=== PATIENT | male | born 1940 | race Caucasian/White ===

== ENCOUNTER 2018-01-29 15:28 | Inpatient (IN) ==
[2018-01-29 17:18] LABS: Lactic Acid 1.4 MMOL/L (0.4-2.0)
[2018-01-29 17:19] LABS: Albumin 3.7 G/DL (3.4-5.0); Bilirubin,Total 0.8 MG/DL (0.2-1.0); Calcium 8.7 MG/DL (8.5-10.1); Osmolality,Calculated 281.4 MOS/KG (273-304); Potassium 3.9 MMOL/L (3.5-5.1); Total Protein 6.8 G/DL (6.4-8.3)
[2018-01-29 17:30] LABS: Basophils % 0.2 % (0.0-0.8); Eosinophils % 0.1 % (0.00-10.9); Hematocrit 32.2 VOL% (42.0-52.0); Hemoglobin 11.1 GM/DL (14.0-18.0); Immature Granulocytes % 7.3 %; Immature Granulocytes Absolute 0.72 #; Lymphocytes # 0.5 10*3/uL (1.4-4.0); Lymphocytes % 5.5 % (21.2-54.2); Mean Corpuscular HGB Conc 34.5 GM/DL (32-36); Mean Corpuscular Hemoglobin 32 PG (27-34); Mean Corpuscular Volume 93.6 FL (87-102); Mean Platelet Volume 9.7 FL (9.6-12.0); Monocytes % 10.5 % (1.7-12.7); Neutrophils # 7.6 10*3/uL (1.4-7.4); Neutrophils % 76.4 % (38.7-73.9); Platelet Count 149 T/CUMM (130-400); Red Blood Count 3.44 MC/CUMM (3.8-5.5); Red Cell Distribution Width 13.2 % (9.3-17.3); White Blood Count 9.9 T/CUMM (4-12)
[2018-01-29 17:45] LABS: Apearance,Urine Slightly Hazy (Clear); Bacteria,Urine Occasional /HPF (Few); Bilirubin,Urine Negative (Negative); Blood, Urine Small mg/dL (Negative); Glucose,Urine (UA) Negative (Negative); Ketones,Urine 5 mg/dL (Negative); Mucus,Urine Occasional /LPF (Occasional); Nitrite,Urine Negative (Negative); Protein,Urine 30 MG/DL; RBC,Urine 3 /HPF (0-4); Squamous Epithelial Cell,Urine Occasional /HPF (0-10); Urine Color Yellow (Yellow); Urine Specific Gravity 1.018 (1.001-1.035); WBC,Urine 63 /HPF (0-6)
[2018-01-29] MEDS ORDERED: SODIUM CHLORIDE 0.9% 1,000 ML IV STA (18:04)
[2018-01-29] MEDS ORDERED: cefTRIAXone 1,000 MG in SODIUM CHLORIDE 0.9% 100 ML IV STA (18:04)
[2018-01-29 18:28] LABS: Band Neutrophils 3 % (0-10); Lymphocytes 8 % (20-55); Segmented Neutrophils 83 % (50-85)
[2018-01-29 18:29] LABS: Platelet Estimate Normal; Total Cells Counted 100
[2018-01-29] MEDS ORDERED: ONDANSETRON 4 MG/2 ML VIAL IV PRN (18:33)
[2018-01-29] MEDS: SODIUM CHLORIDE 0.9% 1,000 ML IV SCH (22:11)
[2018-01-29] MEDS: FAMOTIDINE 20 MG TABLET PO SCH (22:12)
[2018-01-29] MEDS: PREGABALIN 75 MG CAPSULE PO SCH (22:12)
[2018-01-29] MEDS: traZODone 50 MG TABLET PO SCH (22:12)
[2018-01-29] MEDS: ENOXAPARIN 40 MG/0.4 ML SYRINGE SUBCUT SCH (22:13)
[2018-01-29] MEDS: FLUTICASONE 50 MCG NASAL SPRAY 16 GM BOTTLE BOTH NARES SCH (22:14)
[2018-01-29] MEDS: ACETAMINOPHEN 325 MG TABLET PO PRN (22:21)
[2018-01-29] MEDS: MEROPENEM 1,000 MG in SYRINGE 1 EACH IV SCH (22:22)
[2018-01-30 03:59] LABS: Basophils % 0.4 % (0.0-0.8); Eosinophils % 0.4 % (0.00-10.9); Hematocrit 28.5 VOL% (42.0-52.0); Hemoglobin 10.1 GM/DL (14.0-18.0); Immature Granulocytes % 6.5 %; Immature Granulocytes Absolute 0.54 #; Lymphocytes # 0.6 10*3/uL (1.4-4.0); Lymphocytes % 6.7 % (21.2-54.2); Mean Corpuscular HGB Conc 35.4 GM/DL (32-36); Mean Corpuscular Hemoglobin 32 PG (27-34); Mean Corpuscular Volume 91.1 FL (87-102); Mean Platelet Volume 9.9 FL (9.6-12.0); Monocytes # 0.9 10*3/uL (0.11-0.8); Monocytes % 10.5 % (1.7-12.7); Neutrophils # 6.3 10*3/uL (1.4-7.4); Neutrophils % 75.5 % (38.7-73.9); Platelet Count 145 T/CUMM (130-400); Red Blood Count 3.13 MC/CUMM (3.8-5.5); White Blood Count 8.4 T/CUMM (4-12)
[2018-01-30 04:23] LABS: Calcium 8.5 MG/DL (8.5-10.1); Osmolality,Calculated 282.3 MOS/KG (273-304); Potassium 3.4 MMOL/L (3.5-5.1)
[2018-01-30 06:58] LABS: Band Neutrophils 1 % (0-10); Lymphocytes 6 % (20-55); Platelet Estimate Normal; Segmented Neutrophils 89 % (50-85); Total Cells Counted 100
[2018-01-30] MEDS ORDERED: PANTOPRAZOLE 40 MG TABLET PO SCH (09:00)
[2018-01-30] MEDS: MEROPENEM 1,000 MG in SYRINGE 1 EACH IV SCH ×2 (09:29→20:23)
[2018-01-30] MEDS: MELOXICAM 7.5 MG TABLET PO SCH (09:29)
[2018-01-30] MEDS: PREGABALIN 75 MG CAPSULE PO SCH ×2 (09:29→20:21)
[2018-01-30] MEDS: MULTIVITAMIN (CENTRUM) TABLET PO SCH (09:29)
[2018-01-30] MEDS: FAMOTIDINE 20 MG TABLET PO SCH ×2 (09:29→20:21)
[2018-01-30] MEDS: ASPIRIN EC 81 MG TABLET PO SCH (09:29)
[2018-01-30] MEDS: CETIRIZINE 10 MG TABLET PO SCH (09:30)
[2018-01-30] MEDS: PRAVASTATIN 40 MG TABLET PO SCH (09:30)
[2018-01-30] MEDS: FLUTICASONE 50 MCG NASAL SPRAY 16 GM BOTTLE BOTH NARES SCH ×2 (10:49→20:22)
[2018-01-30] MEDS: SODIUM CHLORIDE 0.9% 1,000 ML IV SCH ×2 (10:49→23:16)
[2018-01-30] MEDS: ACETAMINOPHEN 325 MG TABLET PO PRN (20:21)
[2018-01-30] MEDS: traZODone 50 MG TABLET PO SCH (20:21)
[2018-01-30] MEDS: ENOXAPARIN 40 MG/0.4 ML SYRINGE SUBCUT SCH (20:22)
[2018-01-31 06:57] LABS: Calcium 8.6 MG/DL (8.5-10.1); Osmolality,Calculated 292.6 MOS/KG (273-304); Potassium 3.6 MMOL/L (3.5-5.1)
[2018-01-31 07:05] LABS: Basophils % 0.5 % (0.0-0.8); Eosinophils # 0.2 10*3/uL (0.0-0.87); Eosinophils % 3.8 % (0.00-10.9); Hematocrit 29.1 VOL% (42.0-52.0); Hemoglobin 9.8 GM/DL (14.0-18.0); Immature Granulocytes % 4.8 %; Immature Granulocytes Absolute 0.19 #; Lymphocytes # 0.4 10*3/uL (1.4-4.0); Mean Corpuscular HGB Conc 33.7 GM/DL (32-36); Mean Corpuscular Hemoglobin 32 PG (27-34); Mean Corpuscular Volume 93.6 FL (87-102); Mean Platelet Volume 9.9 FL (9.6-12.0); Monocytes # 0.5 10*3/uL (0.11-0.8); Monocytes % 11.3 % (1.7-12.7); Neutrophils # 2.8 10*3/uL (1.4-7.4); Neutrophils % 70.6 % (38.7-73.9); Platelet Count 146 T/CUMM (130-400); Red Blood Count 3.11 MC/CUMM (3.8-5.5); Red Cell Distribution Width 12.9 % (9.3-17.3)
[2018-01-31] MEDS: MEROPENEM 1,000 MG in SYRINGE 1 EACH IV SCH ×2 (08:37→20:46)
[2018-01-31] MEDS: ASPIRIN EC 81 MG TABLET PO SCH (08:38)
[2018-01-31] MEDS: FAMOTIDINE 20 MG TABLET PO SCH ×2 (08:38→20:44)
[2018-01-31] MEDS: MELOXICAM 7.5 MG TABLET PO SCH (08:38)
[2018-01-31] MEDS: PREGABALIN 75 MG CAPSULE PO SCH ×2 (08:38→20:46)
[2018-01-31] MEDS: PRAVASTATIN 40 MG TABLET PO SCH (08:38)
[2018-01-31] MEDS: CETIRIZINE 10 MG TABLET PO SCH (08:38)
[2018-01-31] MEDS: MULTIVITAMIN (CENTRUM) TABLET PO SCH (08:38)
[2018-01-31] MEDS: FLUTICASONE 50 MCG NASAL SPRAY 16 GM BOTTLE BOTH NARES SCH ×2 (08:39→21:25)
[2018-01-31] MEDS: SODIUM CHLORIDE 0.9% 1,000 ML IV SCH (12:10)
[2018-01-31] MEDS: VANCOMYCIN INJ 1,500 MG in SODIUM CHLORIDE 0.9% 500 ML IV SCH (14:58)
[2018-01-31] MEDS: ACETAMINOPHEN 325 MG TABLET PO PRN (20:44)
[2018-01-31] MEDS: ENOXAPARIN 40 MG/0.4 ML SYRINGE SUBCUT SCH (20:44)
[2018-01-31] MEDS: traZODone 50 MG TABLET PO SCH (20:44)
[2018-02-01] MEDS: VANCOMYCIN INJ 1,500 MG in SODIUM CHLORIDE 0.9% 500 ML IV SCH (02:17)
[2018-02-01] MEDS: SODIUM CHLORIDE 0.9% 1,000 ML IV SCH (05:57)
[2018-02-01 07:14] VITALS: BP 110/61
[2018-02-01] MEDS: MEROPENEM 1,000 MG in SYRINGE 1 EACH IV SCH (09:33)
[2018-02-01] MEDS: MELOXICAM 7.5 MG TABLET PO SCH (09:34)
[2018-02-01] MEDS: MULTIVITAMIN (CENTRUM) TABLET PO SCH (09:34)
[2018-02-01] MEDS: ASPIRIN EC 81 MG TABLET PO SCH (09:34)
[2018-02-01] MEDS: CETIRIZINE 10 MG TABLET PO SCH (09:34)
[2018-02-01] MEDS: PRAVASTATIN 40 MG TABLET PO SCH (09:34)
[2018-02-01] MEDS: FAMOTIDINE 20 MG TABLET PO SCH (09:34)
[2018-02-01] MEDS: PREGABALIN 75 MG CAPSULE PO SCH (09:34)
[2018-02-01] MEDS: FLUTICASONE 50 MCG NASAL SPRAY 16 GM BOTTLE BOTH NARES SCH (09:38)
== END 2018-02-01 10:35 | disposition home or self-care (01) | DRG 690 ==
LOC: N.ED 15:28 → N.EDINP 18:32 → N.5E 19:33
PROVIDERS: ADMIT Internal Medicine; ATTEND Internal Medicine

== ENCOUNTER 2021-11-29 19:30 | Inpatient (IN) ==
[2021-11-29 19:59] LABS: Basophils # 0.1 10*3/uL (0.0-0.2); Basophils % 0.4 % (0.0-0.8); Eosinophils # 0.2 10*3/uL (0.0-0.87); Eosinophils % 1.6 % (0.00-10.9); Hematocrit 39.3 VOL% (42.0-52.0); Hemoglobin 13.6 GM/DL (14.0-18.0); Immature Granulocytes % 0.6 %; Immature Granulocytes Absolute 0.07 #; Lymphocytes # 1.8 10*3/uL (1.4-4.0); Lymphocytes % 15.7 % (21.2-54.2); Mean Corpuscular HGB Conc 34.6 GM/DL (32-36); Mean Corpuscular Volume 88.3 FL (87-102); Mean Platelet Volume 9.2 FL (9.6-12.0); Monocytes % 7.3 % (1.7-12.7); Neutrophils % 74.4 % (38.7-73.9); Platelet Count 225 T/CUMM (130-400); Red Blood Count 4.45 MC/CUMM (3.8-5.5); White Blood Count 11.3 T/CUMM (4-12)
[2021-11-29 20:09] LABS: PT Patient Result 10.9 SECS (10.5-12.0)
[2021-11-29 20:23] LABS: Alanine Aminotransferase 20 U/L (16-61); Albumin 3.9 G/DL (3.4-5.0); Alkaline Phosphatase 86 U/L (45-117); Aspartate Amino Transferase 13 U/L (0-37); Bilirubin,Total < 0.39 MG/DL (0.20-1.00); Blood Urea Nitrogen 22 MG/DL (7-18); Calcium 8.5 MG/DL (8.5-10.1); Carbon Dioxide 27 MMOL/L (21-32); Estimated Glom Filtration Rate 29 ML/MIN; Glucose 209 MG/DL (74-106); Osmolality,Calculated 287.4 MOS/KG (273-304); Potassium 2.9 MMOL/L (3.5-5.1); Sodium 140 MMOL/L (136-145); Total Protein 6.9 G/DL (6.4-8.2)
[2021-11-29] MEDS ORDERED: SODIUM CHLORIDE 0.9% 2,000 ML IV STA (20:55)
[2021-11-29 20:59] LABS: Hyaline Casts,Urine 1 /LPF (0-3); Mucus,Urine Occasional /LPF (Occasional); RBC,Urine 3 /HPF (0-4)
[2021-11-29 21:00] LABS: Bilirubin,Urine Negative (Negative); Blood, Urine Negative (Negative); Glucose,Urine (UA) Negative (Negative); Ketones,Urine Trace mg/dL (Negative); Nitrite,Urine Negative (Negative); Protein,Urine Trace mg/dL (Negative); Urine Appearance Clear (Clear); Urine Color Yellow (Yellow); Urine Specific Gravity 1.025 (1.001-1.035); Urine Urobilinogen 0.2 eU/dL (<2.0); Urine pH 5.5 (4.5-8.0)
[2021-11-30] MEDS ORDERED: POTASSIUM CHLORIDE RIDER 20 MEQ/100 ML PREMIX IV STA (00:16)
[2021-11-30] MEDS ORDERED: GLUCAGON 1 MG VIAL IM PRN (00:18)
[2021-11-30] MEDS ORDERED: MAGNESIUM SULF RIDER 2 GM/50 ML PREMIX IV PRN (00:18)
[2021-11-30] MEDS ORDERED: SIMETHICONE CHEW 125 MG TABLET PO PRN (00:18)
[2021-11-30] MEDS ORDERED: MAGNESIUM SULF RIDER 4 GM/100 ML PREMIX IV PRN (00:18)
[2021-11-30] MEDS ORDERED: ONDANSETRON 4 MG/2 ML VIAL IV PRN (00:18)
[2021-11-30] MEDS ORDERED: POTASSIUM CHLORIDE 20 MEQ TABLET PO STA (00:19)
[2021-11-30] MEDS ORDERED: DEXTROSE 10% 250 ML BAG IV PRN (00:35)
[2021-11-30] MEDS ORDERED: ENOXAPARIN 40 MG/0.4 ML SYRINGE SUBCUT SCH (01:00)
[2021-11-30] MEDS: LACTATED RINGERS 1,000 ML IV SCH ×2 (02:27→10:33)
[2021-11-30 04:13] LABS: Calcium 7.6 MG/DL (8.5-10.1); Osmolality,Calculated 284.3 MOS/KG (273-304)
[2021-11-30] MEDS: POTASSIUM CHLORIDE 20 MEQ TABLET PO PRN ×4 (05:06→11:47)
[2021-11-30 06:42] LABS: Basophils # 0.1 10*3/uL (0.0-0.2); Eosinophils # 0.2 10*3/uL (0.0-0.87); Eosinophils % 3.3 % (0.00-10.9); Hematocrit 34.2 VOL% (42.0-52.0); Hemoglobin 11.6 GM/DL (14.0-18.0); Immature Granulocytes % 0.5 %; Immature Granulocytes Absolute 0.03 #; Lymphocytes # 1.9 10*3/uL (1.4-4.0); Lymphocytes % 31.6 % (21.2-54.2); Mean Corpuscular HGB Conc 33.9 GM/DL (32-36); Mean Corpuscular Volume 89.8 FL (87-102); Mean Platelet Volume 9.7 FL (9.6-12.0); Monocytes % 8.7 % (1.7-12.7); Neutrophils % 54.9 % (38.7-73.9); Platelet Count 192 T/CUMM (130-400); Red Blood Count 3.81 MC/CUMM (3.8-5.5); Red Cell Distribution Width 14.1 % (9.3-17.3)
[2021-11-30] MEDS: INSULIN REGULAR 100 UNIT/ML SUBCUT SCH ×4 (07:43→21:20)
[2021-11-30] MEDS: ENOXAPARIN 40 MG/0.4 ML SYRINGE SUBCUT SCH (09:10)
[2021-11-30] MEDS: PANTOPRAZOLE 40 MG TABLET PO SCH (09:10)
[2021-11-30] MEDS: DOCUSATE SODIUM 100 MG CAPSULE PO SCH ×2 (09:10→20:44)
[2021-11-30] MEDS ORDERED: FLUTICASONE 50 MCG NASAL SPRAY 16 GM BOTTLE BOTH NARES PRN (09:30)
[2021-11-30] MEDS: LEVOTHYROXINE 75 MCG TABLET PO SCH (10:33)
[2021-11-30] MEDS: CITALOPRAM 20 MG TABLET PO SCH (10:33)
[2021-11-30] MEDS: LOSARTAN 50 MG TABLET PO SCH (10:33)
[2021-11-30] MEDS: CYANOCOBALAMIN 500 MCG TABLET PO SCH (16:41)
[2021-11-30] MEDS: ASPIRIN EC 81 MG TABLET PO SCH (20:43)
[2021-11-30] MEDS: CETIRIZINE 10 MG TABLET PO SCH (20:43)
[2021-11-30] MEDS: PREGABALIN 75 MG CAPSULE PO SCH (20:44)
[2021-11-30] MEDS: SIMVASTATIN 20 MG TABLET PO SCH (20:44)
[2021-12-01] MEDS: LACTATED RINGERS 1,000 ML IV SCH ×2 (03:11→21:20)
[2021-12-01 05:46] LABS: Basophils % 0.6 % (0.0-0.8); Eosinophils # 0.2 10*3/uL (0.0-0.87); Eosinophils % 2.3 % (0.00-10.9); Hematocrit 29.9 VOL% (42.0-52.0); Hemoglobin 10.3 GM/DL (14.0-18.0); Immature Granulocytes % 0.5 %; Immature Granulocytes Absolute 0.03 #; Lymphocytes % 15.9 % (21.2-54.2); Mean Corpuscular HGB Conc 34.4 GM/DL (32-36); Mean Corpuscular Volume 89.5 FL (87-102); Mean Platelet Volume 9.3 FL (9.6-12.0); Neutrophils % 73.7 % (38.7-73.9); Platelet Count 177 T/CUMM (130-400); Red Blood Count 3.34 MC/CUMM (3.8-5.5); Red Cell Distribution Width 14.1 % (9.3-17.3); White Blood Count 6.5 T/CUMM (4-12)
[2021-12-01 05:53] LABS: Calcium 7.9 MG/DL (8.5-10.1); Potassium 3.3 MMOL/L (3.5-5.1)
[2021-12-01] MEDS: LEVOTHYROXINE 75 MCG TABLET PO SCH (07:38)
[2021-12-01] MEDS: DOCUSATE SODIUM 100 MG CAPSULE PO SCH ×2 (08:51→21:18)
[2021-12-01] MEDS: CITALOPRAM 20 MG TABLET PO SCH (08:51)
[2021-12-01] MEDS: MULTIVITAMIN (CENTRUM) TABLET PO SCH (08:51)
[2021-12-01] MEDS: PANTOPRAZOLE 40 MG TABLET PO SCH (08:51)
[2021-12-01] MEDS: ENOXAPARIN 40 MG/0.4 ML SYRINGE SUBCUT SCH (08:52)
[2021-12-01] MEDS: LOSARTAN 50 MG TABLET PO SCH (08:52)
[2021-12-01] MEDS: POLYCARBOPHIL 625 MG TABLET PO SCH ×2 (08:58→21:19)
[2021-12-01] MEDS: PREGABALIN 75 MG CAPSULE PO SCH ×2 (09:12→21:19)
[2021-12-01] MEDS: CYANOCOBALAMIN 500 MCG TABLET PO SCH (09:14)
[2021-12-01] MEDS: INSULIN REGULAR 100 UNIT/ML SUBCUT SCH ×4 (09:33→20:56)
[2021-12-01] MEDS: SIMVASTATIN 20 MG TABLET PO SCH (21:18)
[2021-12-01] MEDS: CETIRIZINE 10 MG TABLET PO SCH (21:19)
[2021-12-01] MEDS: ASPIRIN EC 81 MG TABLET PO SCH (21:19)
[2021-12-01] MEDS: MAGNESIUM OXIDE 400 MG TABLET PO SCH (21:21)
[2021-12-02 04:25] LABS: Basophils % 0.3 % (0.0-0.8); Eosinophils # 0.1 10*3/uL (0.0-0.87); Eosinophils % 1.1 % (0.00-10.9); Hematocrit 28.9 VOL% (42.0-52.0); Hemoglobin 10.1 GM/DL (14.0-18.0); Immature Granulocytes % 0.9 %; Immature Granulocytes Absolute 0.08 #; Lymphocytes # 1.3 10*3/uL (1.4-4.0); Lymphocytes % 15.2 % (21.2-54.2); Mean Corpuscular HGB Conc 34.9 GM/DL (32-36); Mean Corpuscular Volume 88.7 FL (87-102); Mean Platelet Volume 9.2 FL (9.6-12.0); Neutrophils % 72.5 % (38.7-73.9); Platelet Count 138 T/CUMM (130-400); Red Blood Count 3.26 MC/CUMM (3.8-5.5); Red Cell Distribution Width 13.8 % (9.3-17.3); White Blood Count 8.7 T/CUMM (4-12)
[2021-12-02 04:53] LABS: Calcium 7.8 MG/DL (8.5-10.1); Osmolality,Calculated 279.5 MOS/KG (273-304); Potassium 2.6 MMOL/L (3.5-5.1)
[2021-12-02 04:57] LABS: % Iron Saturation 6.5 % (18-50); Ferritin 157.2 ng/mL (26-388)
[2021-12-02 05:01] LABS: Folate 7.35 NG/ML (5.38-24.0); Vitamin B12 1388 PG/ML (211-911)
[2021-12-02 05:03] LABS: Free T4 (Free Thyroxine) 0.93 NG/DL (0.76-1.46); Thyroid Stimulating Hormone 1.44 uIU/ml (0.358-3.74)
[2021-12-02] MEDS: LEVOTHYROXINE 75 MCG TABLET PO SCH (05:34)
[2021-12-02] MEDS: LACTATED RINGERS 1,000 ML IV SCH ×4 (05:35→21:06)
[2021-12-02 07:10] LABS: Sedimentation Rate-Westergren 30 MM/HR (0-20)
[2021-12-02 08:39] LABS: Hemoglobin A1 (Alkaline) 97.3 % (96.5-98.5); Hemoglobin A2 (Alkaline) 2.7 % (1.5-3.5)
[2021-12-02] MEDS: POTASSIUM CHLORIDE 20 MEQ TABLET PO PRN ×3 (09:26→18:00)
[2021-12-02] MEDS: PREGABALIN 75 MG CAPSULE PO SCH ×2 (09:27→21:03)
[2021-12-02] MEDS: LOSARTAN 50 MG TABLET PO SCH (09:27)
[2021-12-02] MEDS: POLYCARBOPHIL 625 MG TABLET PO SCH ×2 (09:27→21:03)
[2021-12-02] MEDS: DOCUSATE SODIUM 100 MG CAPSULE PO SCH ×2 (09:27→21:03)
[2021-12-02] MEDS: CITALOPRAM 20 MG TABLET PO SCH (09:27)
[2021-12-02] MEDS: MULTIVITAMIN (CENTRUM) TABLET PO SCH (09:27)
[2021-12-02] MEDS: MAGNESIUM OXIDE 400 MG TABLET PO SCH ×2 (09:28→21:03)
[2021-12-02] MEDS: PANTOPRAZOLE 40 MG TABLET PO SCH (09:28)
[2021-12-02] MEDS: CYANOCOBALAMIN 500 MCG TABLET PO SCH (09:28)
[2021-12-02] MEDS: ENOXAPARIN 40 MG/0.4 ML SYRINGE SUBCUT SCH (09:32)
[2021-12-02] MEDS ORDERED: POTASSIUM CHLORIDE 20 MEQ TABLET PO ONE (11:00)
[2021-12-02] MEDS ORDERED: MAGNESIUM SULF RIDER 2 GM/50 ML PREMIX IV ONE (11:00)
[2021-12-02] MEDS: INSULIN REGULAR 100 UNIT/ML SUBCUT SCH ×4 (11:45→21:03)
[2021-12-02] MEDS: ACETAMINOPHEN 325 MG TABLET PO PRN (18:01)
[2021-12-02] MEDS: ASPIRIN EC 81 MG TABLET PO SCH (21:02)
[2021-12-02] MEDS: CETIRIZINE 10 MG TABLET PO SCH (21:02)
[2021-12-02] MEDS: SIMVASTATIN 20 MG TABLET PO SCH (21:04)
[2021-12-03] MEDS: LACTATED RINGERS 1,000 ML IV SCH ×2 (04:18→14:53)
[2021-12-03] MEDS: ACETAMINOPHEN 325 MG TABLET PO PRN (04:18)
[2021-12-03] MEDS: LEVOTHYROXINE 75 MCG TABLET PO SCH ×2 (04:18→09:49)
[2021-12-03 05:09] LABS: Basophils % 0.4 % (0.0-0.8); Eosinophils # 0.1 10*3/uL (0.0-0.87); Eosinophils % 0.7 % (0.00-10.9); Hematocrit 29.1 VOL% (42.0-52.0); Hemoglobin 10.1 GM/DL (14.0-18.0); Immature Granulocytes % 1.3 %; Immature Granulocytes Absolute 0.13 #; Lymphocytes # 1.1 10*3/uL (1.4-4.0); Lymphocytes % 10.2 % (21.2-54.2); Mean Corpuscular HGB Conc 34.7 GM/DL (32-36); Mean Platelet Volume 9.4 FL (9.6-12.0); Monocytes % 10.5 % (1.7-12.7); Neutrophils % 76.9 % (38.7-73.9); Platelet Count 119 T/CUMM (130-400); Red Blood Count 3.27 MC/CUMM (3.8-5.5); Red Cell Distribution Width 13.6 % (9.3-17.3); White Blood Count 10.3 T/CUMM (4-12)
[2021-12-03 05:36] LABS: Band Neutrophils 3 % (0-10); Calcium 7.6 MG/DL (8.5-10.1); Hypochromia Slight; Lymphocytes 10 % (20-55); Osmolality,Calculated 278.5 MOS/KG (273-304); Potassium 2.7 MMOL/L (3.5-5.1); Segmented Neutrophils 82 % (50-85); Total Cells Counted 100
[2021-12-03 05:37] LABS: Microcytosis Slight; Ovalocytes Slight; Platelet Estimate Adequate
[2021-12-03] MEDS: POTASSIUM CHLORIDE RIDER 10 MEQ/100 ML PREMIX IV PRN ×4 (07:20→10:59)
[2021-12-03] MEDS: MAGNESIUM OXIDE 400 MG TABLET PO SCH ×2 (09:45→20:58)
[2021-12-03] MEDS: CITALOPRAM 20 MG TABLET PO SCH (09:45)
[2021-12-03] MEDS: PANTOPRAZOLE 40 MG TABLET PO SCH (09:45)
[2021-12-03] MEDS: LOSARTAN 50 MG TABLET PO SCH (09:45)
[2021-12-03] MEDS: MULTIVITAMIN (CENTRUM) TABLET PO SCH (09:45)
[2021-12-03] MEDS: PREGABALIN 75 MG CAPSULE PO SCH ×2 (09:45→20:43)
[2021-12-03] MEDS: POLYCARBOPHIL 625 MG TABLET PO SCH ×2 (09:45→20:43)
[2021-12-03] MEDS: CYANOCOBALAMIN 500 MCG TABLET PO SCH (09:45)
[2021-12-03] MEDS: DOCUSATE SODIUM 100 MG CAPSULE PO SCH ×2 (09:45→20:58)
[2021-12-03] MEDS: INSULIN REGULAR 100 UNIT/ML SUBCUT SCH ×4 (09:49→20:45)
[2021-12-03] MEDS: SODIUM CHLOR 0.9% KCL 40 MEQ 40 MEQ/1,000 ML BAG IV SCH (11:30)
[2021-12-03 12:26] LABS: Calcium 8.1 MG/DL (8.5-10.1); Osmolality,Calculated 278.5 MOS/KG (273-304); Potassium 3.4 MMOL/L (3.5-5.1)
[2021-12-03] MEDS ORDERED: LIDOCAINE 2% 5 ML VIAL ONE (13:31)
[2021-12-03] MEDS ORDERED: propofoL 200 MG/20 ML VIAL IV ONE (13:31)
[2021-12-03] MEDS: CETIRIZINE 10 MG TABLET PO SCH (20:43)
[2021-12-03] MEDS: SIMVASTATIN 20 MG TABLET PO SCH (20:43)
[2021-12-03] MEDS: ASPIRIN EC 81 MG TABLET PO SCH (20:43)
[2021-12-03] MEDS: FERROUS SULFATE 325 MG TABLET PO SCH (20:58)
[2021-12-04 00:06] LABS: CDT Result Negative (Negative); CDT Specimen Source STOOL
[2021-12-04] MEDS: SODIUM CHLOR 0.9% KCL 40 MEQ 40 MEQ/1,000 ML BAG IV SCH ×2 (03:06→16:05)
[2021-12-04] MEDS: LEVOTHYROXINE 75 MCG TABLET PO SCH (05:32)
[2021-12-04 06:06] LABS: Basophils % 0.3 % (0.0-0.8); Eosinophils # 0.1 10*3/uL (0.0-0.87); Eosinophils % 1.1 % (0.00-10.9); Hematocrit 28.6 VOL% (42.0-52.0); Hemoglobin 9.6 GM/DL (14.0-18.0); Immature Granulocytes Absolute 0.09 #; Lymphocytes # 1.1 10*3/uL (1.4-4.0); Mean Corpuscular HGB Conc 33.6 GM/DL (32-36); Mean Corpuscular Volume 90.2 FL (87-102); Mean Platelet Volume 10.2 FL (9.6-12.0); Monocytes % 10.5 % (1.7-12.7); Neutrophils % 74.1 % (38.7-73.9); Platelet Count 123 T/CUMM (130-400); Red Blood Count 3.17 MC/CUMM (3.8-5.5); Red Cell Distribution Width 13.5 % (9.3-17.3); White Blood Count 8.7 T/CUMM (4-12)
[2021-12-04 06:28] LABS: Eosinophils 1 % (0-10); Lymphocytes 12 % (20-55); Segmented Neutrophils 85 % (50-85); Total Cells Counted 100
[2021-12-04 06:32] LABS: Platelet Estimate Normal
[2021-12-04 06:34] LABS: Hypochromia Slight
[2021-12-04 06:35] LABS: Microcytosis Slight
[2021-12-04 06:45] LABS: Calcium 7.8 MG/DL (8.5-10.1); Osmolality,Calculated 276.7 MOS/KG (273-304); Potassium 3.1 MMOL/L (3.5-5.1)
[2021-12-04] MEDS ORDERED: ERGOCALCIFEROL 50,000 UNIT CAPSULE PO SCH (09:00)
[2021-12-04] MEDS: POLYCARBOPHIL 625 MG TABLET PO SCH (09:36)
[2021-12-04] MEDS: PREGABALIN 75 MG CAPSULE PO SCH ×2 (09:36→21:55)
[2021-12-04] MEDS: INSULIN REGULAR 100 UNIT/ML SUBCUT SCH ×4 (09:36→21:54)
[2021-12-04] MEDS: DOCUSATE SODIUM 100 MG CAPSULE PO SCH (09:36)
[2021-12-04] MEDS: FERROUS SULFATE 325 MG TABLET PO SCH ×2 (09:36→21:55)
[2021-12-04] MEDS: CYANOCOBALAMIN 500 MCG TABLET PO SCH (09:36)
[2021-12-04] MEDS: MAGNESIUM OXIDE 400 MG TABLET PO SCH ×2 (09:37→21:55)
[2021-12-04] MEDS: LOSARTAN 50 MG TABLET PO SCH (09:37)
[2021-12-04] MEDS: CITALOPRAM 20 MG TABLET PO SCH (09:37)
[2021-12-04] MEDS: PANTOPRAZOLE 40 MG TABLET PO SCH (09:37)
[2021-12-04] MEDS: MULTIVITAMIN (CENTRUM) TABLET PO SCH (09:37)
[2021-12-04 20:02] LABS: RBC,Urine 8 /HPF (0-4)
[2021-12-04 20:03] LABS: Bilirubin,Urine Negative (Negative); Blood, Urine Small mg/dL (Negative); Glucose,Urine (UA) 500 mg/dL (Negative); Ketones,Urine Negative (Negative); Nitrite,Urine Positive (Negative); Protein,Urine 1+ mg/dL (Negative); Urine Appearance Cloudy (Clear); Urine Color Yellow (Yellow); Urine Specific Gravity 1.015 (1.001-1.035); Urine Urobilinogen 0.2 eU/dL (<2.0)
[2021-12-04] MEDS: SIMVASTATIN 20 MG TABLET PO SCH (21:55)
[2021-12-04] MEDS: CETIRIZINE 10 MG TABLET PO SCH (21:55)
[2021-12-04] MEDS: ASPIRIN EC 81 MG TABLET PO SCH (21:55)
[2021-12-04] MEDS: CHOLESTYRAMINE 4 GM PACK PO SCH (22:16)
[2021-12-05] MEDS: LEVOTHYROXINE 75 MCG TABLET PO SCH (06:00)
[2021-12-05 06:13] LABS: Basophils % 0.4 % (0.0-0.8); Eosinophils # 0.2 10*3/uL (0.0-0.87); Eosinophils % 2.9 % (0.00-10.9); Hematocrit 33.8 VOL% (42.0-52.0); Hemoglobin 11.6 GM/DL (14.0-18.0); Immature Granulocytes % 0.5 %; Immature Granulocytes Absolute 0.03 #; Lymphocytes # 0.7 10*3/uL (1.4-4.0); Lymphocytes % 13.5 % (21.2-54.2); Mean Corpuscular HGB Conc 34.3 GM/DL (32-36); Mean Corpuscular Volume 90.6 FL (87-102); Mean Platelet Volume 10.3 FL (9.6-12.0); Monocytes % 11.5 % (1.7-12.7); Neutrophils % 71.2 % (38.7-73.9); Platelet Count 120 T/CUMM (130-400); Red Blood Count 3.73 MC/CUMM (3.8-5.5); Red Cell Distribution Width 13.6 % (9.3-17.3); White Blood Count 5.5 T/CUMM (4-12)
[2021-12-05 06:27] LABS: Calcium 7.8 MG/DL (8.5-10.1); Osmolality,Calculated 284.4 MOS/KG (273-304); Potassium 3.3 MMOL/L (3.5-5.1)
[2021-12-05] MEDS: FERROUS SULFATE 325 MG TABLET PO SCH ×2 (09:16→22:16)
[2021-12-05] MEDS: CHOLESTYRAMINE 4 GM PACK PO SCH ×2 (09:16→22:16)
[2021-12-05] MEDS: LOSARTAN 50 MG TABLET PO SCH (09:16)
[2021-12-05] MEDS: CYANOCOBALAMIN 500 MCG TABLET PO SCH (09:17)
[2021-12-05] MEDS: MAGNESIUM OXIDE 400 MG TABLET PO SCH ×2 (09:17→22:16)
[2021-12-05] MEDS: INSULIN REGULAR 100 UNIT/ML SUBCUT SCH ×4 (09:17→21:09)
[2021-12-05] MEDS: MULTIVITAMIN (CENTRUM) TABLET PO SCH (09:17)
[2021-12-05] MEDS: CITALOPRAM 20 MG TABLET PO SCH (09:17)
[2021-12-05] MEDS: PREGABALIN 75 MG CAPSULE PO SCH ×2 (09:17→22:16)
[2021-12-05] MEDS: PANTOPRAZOLE 40 MG TABLET PO SCH (09:17)
[2021-12-05] MEDS: SODIUM CHLOR 0.9% KCL 40 MEQ 40 MEQ/1,000 ML BAG IV SCH ×2 (09:26→23:00)
[2021-12-05] MEDS: LEVOFLOXACIN INJ 500 MG/100 ML PREMIX IV SCH (11:13)
[2021-12-05] MEDS ORDERED: TUBERCULIN SKIN TEST 0.1 ML SYRINGE INTRADERM ONE (15:00)
[2021-12-05] MEDS: ASPIRIN EC 81 MG TABLET PO SCH (22:16)
[2021-12-05] MEDS: SIMVASTATIN 20 MG TABLET PO SCH (22:16)
[2021-12-05] MEDS: CETIRIZINE 10 MG TABLET PO SCH (22:16)
[2021-12-05 23:14] LABS: CDT Result Negative (Negative); CDT Specimen Source STOOL
[2021-12-06] MEDS: LEVOTHYROXINE 75 MCG TABLET PO SCH (06:32)
[2021-12-06 06:54] LABS: Basophils % 0.4 % (0.0-0.8); Eosinophils # 0.2 10*3/uL (0.0-0.87); Eosinophils % 4.1 % (0.00-10.9); Hematocrit 26.2 VOL% (42.0-52.0); Hemoglobin 8.7 GM/DL (14.0-18.0); Immature Granulocytes % 0.8 %; Immature Granulocytes Absolute 0.04 #; Lymphocytes # 0.9 10*3/uL (1.4-4.0); Lymphocytes % 16.7 % (21.2-54.2); Mean Corpuscular HGB Conc 33.2 GM/DL (32-36); Mean Corpuscular Volume 91.6 FL (87-102); Mean Platelet Volume 10.2 FL (9.6-12.0); Monocytes % 11.6 % (1.7-12.7); Neutrophils % 66.4 % (38.7-73.9); Platelet Count 149 T/CUMM (130-400); Red Blood Count 2.86 MC/CUMM (3.8-5.5); Red Cell Distribution Width 13.5 % (9.3-17.3); White Blood Count 5.1 T/CUMM (4-12)
[2021-12-06 07:20] LABS: Calcium 8.1 MG/DL (8.5-10.1); Osmolality,Calculated 282.3 MOS/KG (273-304); Potassium 3.1 MMOL/L (3.5-5.1)
[2021-12-06] MEDS: CHOLESTYRAMINE 4 GM PACK PO SCH ×2 (09:31→21:50)
[2021-12-06] MEDS: INSULIN REGULAR 100 UNIT/ML SUBCUT SCH ×4 (09:32→21:44)
[2021-12-06] MEDS: CYANOCOBALAMIN 500 MCG TABLET PO SCH (09:32)
[2021-12-06] MEDS: PREGABALIN 75 MG CAPSULE PO SCH ×2 (09:32→21:49)
[2021-12-06] MEDS: PANTOPRAZOLE 40 MG TABLET PO SCH (09:32)
[2021-12-06] MEDS: LOSARTAN 50 MG TABLET PO SCH (09:32)
[2021-12-06] MEDS: FERROUS SULFATE 325 MG TABLET PO SCH ×2 (09:33→21:49)
[2021-12-06] MEDS: MAGNESIUM OXIDE 400 MG TABLET PO SCH ×2 (09:33→21:50)
[2021-12-06] MEDS: MULTIVITAMIN (CENTRUM) TABLET PO SCH (09:33)
[2021-12-06] MEDS: CITALOPRAM 20 MG TABLET PO SCH (09:34)
[2021-12-06] MEDS: LEVOFLOXACIN INJ 500 MG/100 ML PREMIX IV SCH (10:52)
[2021-12-06] MEDS: SODIUM CHLOR 0.9% KCL 40 MEQ 40 MEQ/1,000 ML BAG IV SCH (12:47)
[2021-12-06] MEDS: POTASSIUM CHLORIDE 20 MEQ TABLET PO PRN ×2 (12:47→14:53)
[2021-12-06] MEDS ORDERED: POTASSIUM CHLORIDE 20 MEQ TABLET PO ONE (16:54)
[2021-12-06] MEDS ORDERED: MAGNESIUM SULF RIDER 2 GM/50 ML PREMIX IV ONE (16:54)
[2021-12-06] MEDS: SIMVASTATIN 20 MG TABLET PO SCH (21:49)
[2021-12-06] MEDS: ASPIRIN EC 81 MG TABLET PO SCH (21:49)
[2021-12-06] MEDS: CETIRIZINE 10 MG TABLET PO SCH (21:49)
[2021-12-07] MEDS: LEVOTHYROXINE 75 MCG TABLET PO SCH (05:31)
[2021-12-07] MEDS: SODIUM CHLOR 0.9% KCL 40 MEQ 40 MEQ/1,000 ML BAG IV SCH (06:09)
[2021-12-07 07:19] LABS: Basophils % 0.9 % (0.0-0.8); Eosinophils # 0.2 10*3/uL (0.0-0.87); Eosinophils % 4.3 % (0.00-10.9); Hematocrit 28.3 VOL% (42.0-52.0); Hemoglobin 9.4 GM/DL (14.0-18.0); Immature Granulocytes % 0.6 %; Immature Granulocytes Absolute 0.03 #; Lymphocytes # 1.1 10*3/uL (1.4-4.0); Lymphocytes % 24.1 % (21.2-54.2); Mean Corpuscular HGB Conc 33.2 GM/DL (32-36); Mean Corpuscular Volume 92.5 FL (87-102); Mean Platelet Volume 10.2 FL (9.6-12.0); Monocytes % 9.9 % (1.7-12.7); Neutrophils % 60.2 % (38.7-73.9); Platelet Count 148 T/CUMM (130-400); Red Blood Count 3.06 MC/CUMM (3.8-5.5); Red Cell Distribution Width 13.6 % (9.3-17.3); White Blood Count 4.6 T/CUMM (4-12)
[2021-12-07 07:40] LABS: Calcium 8.5 MG/DL (8.5-10.1); Osmolality,Calculated 284.1 MOS/KG (273-304); Potassium 3.8 MMOL/L (3.5-5.1)
[2021-12-07] MEDS: LOSARTAN 50 MG TABLET PO SCH (08:53)
[2021-12-07] MEDS: POTASSIUM CHLORIDE 20 MEQ TABLET PO PRN (08:53)
[2021-12-07] MEDS: CYANOCOBALAMIN 500 MCG TABLET PO SCH (08:54)
[2021-12-07] MEDS: PREGABALIN 75 MG CAPSULE PO SCH ×2 (08:54→20:43)
[2021-12-07] MEDS: MAGNESIUM OXIDE 400 MG TABLET PO SCH ×2 (08:54→20:43)
[2021-12-07] MEDS: CITALOPRAM 20 MG TABLET PO SCH (08:54)
[2021-12-07] MEDS: MULTIVITAMIN (CENTRUM) TABLET PO SCH (08:54)
[2021-12-07] MEDS: PANTOPRAZOLE 40 MG TABLET PO SCH (08:54)
[2021-12-07] MEDS: INSULIN REGULAR 100 UNIT/ML SUBCUT SCH ×4 (08:55→20:43)
[2021-12-07] MEDS: FERROUS SULFATE 325 MG TABLET PO SCH ×2 (10:31→20:43)
[2021-12-07] MEDS: LEVOFLOXACIN INJ 500 MG/100 ML PREMIX IV SCH (10:32)
[2021-12-07] MEDS: CHOLESTYRAMINE 4 GM PACK PO SCH ×2 (10:32→21:38)
[2021-12-07 15:36] LABS: Basophils % 0.9 % (0.0-0.8); Eosinophils # 0.2 10*3/uL (0.0-0.87); Eosinophils % 3.9 % (0.00-10.9); Hemoglobin 9.3 GM/DL (14.0-18.0); Immature Granulocytes % 0.9 %; Immature Granulocytes Absolute 0.04 #; Lymphocytes # 1.2 10*3/uL (1.4-4.0); Lymphocytes % 26.2 % (21.2-54.2); Mean Corpuscular HGB Conc 33.2 GM/DL (32-36); Mean Corpuscular Volume 92.4 FL (87-102); Mean Platelet Volume 9.9 FL (9.6-12.0); Monocytes % 9.3 % (1.7-12.7); Neutrophils % 58.8 % (38.7-73.9); Platelet Count 155 T/CUMM (130-400); Red Blood Count 3.03 MC/CUMM (3.8-5.5); Red Cell Distribution Width 13.4 % (9.3-17.3); White Blood Count 4.4 T/CUMM (4-12)
[2021-12-07] MEDS: CETIRIZINE 10 MG TABLET PO SCH (20:43)
[2021-12-07] MEDS: ASPIRIN EC 81 MG TABLET PO SCH (20:43)
[2021-12-07] MEDS: SIMVASTATIN 20 MG TABLET PO SCH (20:43)
[2021-12-08] MEDS: SODIUM CHLOR 0.9% KCL 40 MEQ 40 MEQ/1,000 ML BAG IV SCH ×3 (00:53→14:50)
[2021-12-08 06:03] LABS: Basophils % 0.7 % (0.0-0.8); Eosinophils # 0.2 10*3/uL (0.0-0.87); Eosinophils % 3.3 % (0.00-10.9); Hematocrit 27.7 VOL% (42.0-52.0); Hemoglobin 9.3 GM/DL (14.0-18.0); Immature Granulocytes % 1.1 %; Immature Granulocytes Absolute 0.06 #; Lymphocytes # 1.1 10*3/uL (1.4-4.0); Mean Corpuscular HGB Conc 33.6 GM/DL (32-36); Mean Corpuscular Volume 90.8 FL (87-102); Mean Platelet Volume 9.7 FL (9.6-12.0); Monocytes % 7.9 % (1.7-12.7); Platelet Count 176 T/CUMM (130-400); Red Blood Count 3.05 MC/CUMM (3.8-5.5); Red Cell Distribution Width 13.4 % (9.3-17.3); White Blood Count 5.4 T/CUMM (4-12)
[2021-12-08] MEDS: LEVOTHYROXINE 75 MCG TABLET PO SCH (06:13)
[2021-12-08 06:23] LABS: Calcium 8.2 MG/DL (8.5-10.1); Osmolality,Calculated 283.1 MOS/KG (273-304); Potassium 4.3 MMOL/L (3.5-5.1)
[2021-12-08] MEDS: INSULIN REGULAR 100 UNIT/ML SUBCUT SCH ×4 (08:01→21:16)
[2021-12-08] MEDS: FERROUS SULFATE 325 MG TABLET PO SCH ×2 (09:45→21:17)
[2021-12-08] MEDS: CYANOCOBALAMIN 500 MCG TABLET PO SCH (09:45)
[2021-12-08] MEDS: PREGABALIN 75 MG CAPSULE PO SCH ×2 (09:45→21:17)
[2021-12-08] MEDS: LOSARTAN 50 MG TABLET PO SCH (09:45)
[2021-12-08] MEDS: PANTOPRAZOLE 40 MG TABLET PO SCH (09:45)
[2021-12-08] MEDS: MAGNESIUM OXIDE 400 MG TABLET PO SCH ×2 (09:45→21:16)
[2021-12-08] MEDS: CITALOPRAM 20 MG TABLET PO SCH (09:45)
[2021-12-08] MEDS: MULTIVITAMIN (CENTRUM) TABLET PO SCH (09:45)
[2021-12-08] MEDS: CHOLESTYRAMINE 4 GM PACK PO SCH ×3 (09:46→22:37)
[2021-12-08] MEDS: LEVOFLOXACIN INJ 500 MG/100 ML PREMIX IV SCH (10:00)
[2021-12-08] MEDS ORDERED: BISACODYL 5 MG TABLET PO ONE (13:30)
[2021-12-08] MEDS ORDERED: POLYETHYLENE GLYCOL POWDER 255 GM BOTTLE PO ONE (18:00)
[2021-12-08] MEDS: ASPIRIN EC 81 MG TABLET PO SCH (21:16)
[2021-12-08] MEDS: SIMVASTATIN 20 MG TABLET PO SCH (21:17)
[2021-12-08] MEDS: CETIRIZINE 10 MG TABLET PO SCH (21:19)
[2021-12-09 04:33] LABS: Basophils # 0.1 10*3/uL (0.0-0.2); Eosinophils # 0.2 10*3/uL (0.0-0.87); Eosinophils % 3.1 % (0.00-10.9); Hematocrit 29.4 VOL% (42.0-52.0); Hemoglobin 9.9 GM/DL (14.0-18.0); Immature Granulocytes % 1.8 %; Immature Granulocytes Absolute 0.09 #; Lymphocytes # 1.4 10*3/uL (1.4-4.0); Lymphocytes % 27.3 % (21.2-54.2); Mean Corpuscular HGB Conc 33.7 GM/DL (32-36); Mean Corpuscular Volume 90.2 FL (87-102); Mean Platelet Volume 9.6 FL (9.6-12.0); Monocytes % 6.4 % (1.7-12.7); Neutrophils % 60.4 % (38.7-73.9); Platelet Count 195 T/CUMM (130-400); Red Blood Count 3.26 MC/CUMM (3.8-5.5); Red Cell Distribution Width 13.2 % (9.3-17.3); White Blood Count 5.1 T/CUMM (4-12)
[2021-12-09 04:50] LABS: Calcium 8.8 MG/DL (8.5-10.1); Osmolality,Calculated 282.3 MOS/KG (273-304)
[2021-12-09] MEDS: SODIUM CHLOR 0.9% KCL 40 MEQ 40 MEQ/1,000 ML BAG IV SCH (05:05)
[2021-12-09] MEDS: LEVOTHYROXINE 75 MCG TABLET PO SCH (05:50)
[2021-12-09] MEDS: LEVOFLOXACIN INJ 500 MG/100 ML PREMIX IV SCH (10:03)
[2021-12-09] MEDS: CYANOCOBALAMIN 500 MCG TABLET PO SCH (10:03)
[2021-12-09] MEDS: MAGNESIUM OXIDE 400 MG TABLET PO SCH (10:04)
[2021-12-09] MEDS: PANTOPRAZOLE 40 MG TABLET PO SCH (10:04)
[2021-12-09] MEDS: PREGABALIN 75 MG CAPSULE PO SCH (10:04)
[2021-12-09] MEDS: FERROUS SULFATE 325 MG TABLET PO SCH (10:04)
[2021-12-09] MEDS: INSULIN REGULAR 100 UNIT/ML SUBCUT SCH ×2 (10:05→15:04)
[2021-12-09] MEDS: MULTIVITAMIN (CENTRUM) TABLET PO SCH (10:05)
[2021-12-09] MEDS: LOSARTAN 50 MG TABLET PO SCH (10:05)
[2021-12-09] MEDS: CITALOPRAM 20 MG TABLET PO SCH (10:05)
[2021-12-09] MEDS ORDERED: LIDOCAINE 2% 5 ML VIAL ONE (12:12)
[2021-12-09] MEDS ORDERED: propofoL 200 MG/20 ML VIAL IV ONE (12:12)
[2021-12-09] MEDS ORDERED: ETOMIDATE 20 MG/10 ML VIAL IV ONE (12:12)
[2021-12-09] MEDS ORDERED: LACTATED RINGERS 1,000 ML IV SCH (13:00)
[2021-12-09] MEDS: CHOLESTYRAMINE 4 GM PACK PO SCH (15:04)
[2021-12-09 16:27] VITALS: BP 145/59
[2021-12-10] MEDS ORDERED: LEVOFLOXACIN 500 MG TABLET PO SCH (09:00)
== END 2021-12-09 16:32 | disposition home health service (06) | DRG 682 ==
LOC: EDBD → EDUNIT# → N.ED 19:30 → N.EDINP 19:30 → SUATTDRO 11-30 00:18 → N.5E 11-30 01:25 → SUATTDRO 12-01 10:43
PROVIDERS: ADMIT Internal Medicine; ATTEND Internal Medicine

== ENCOUNTER 2022-05-08 07:53 | Inpatient (IN) ==
[~2022-05-08 07:53] MED LIST: ASPIRIN 325 MG TABLET PO ONE; DIAZEPAM 5 MG TABLET PO ONE; MAGNESIUM SULF RIDER 2 GM/50 ML PREMIX IV PRN; POTASSIUM CHLORIDE RIDER 10 MEQ/100 ML PREMIX IV PRN; diphenhydrAMINE CAP 50 MG CAPSULE PO ONE
[2022-05-08 08:27] LABS: Basophils # 0.1 10*3/uL (0.0-0.2); Basophils % 0.8 % (0.0-0.8); Eosinophils # 1.6 10*3/uL (0.0-0.87); Eosinophils % 18.3 % (0.00-10.9); Hematocrit 37.7 VOL% (42.0-52.0); Immature Granulocytes % 0.5 %; Immature Granulocytes Absolute 0.04 #; Lymphocytes # 2.3 10*3/uL (1.4-4.0); Lymphocytes % 26.2 % (21.2-54.2); Mean Corpuscular HGB Conc 34.5 GM/DL (32-36); Mean Corpuscular Volume 91.1 FL (87-102); Mean Platelet Volume 8.9 FL (9.6-12.0); Monocytes # 0.6 10*3/uL (0.11-0.8); Monocytes % 6.8 % (1.7-12.7); Neutrophils % 47.4 % (38.7-73.9); Platelet Count 194 T/CUMM (130-400); Red Blood Count 4.14 MC/CUMM (3.8-5.5); Red Cell Distribution Width 13.9 % (9.3-17.3); White Blood Count 8.6 T/CUMM (4-12)
[2022-05-08 08:37] LABS: Eosinophils 15 % (0-10); Lymphocytes 32 % (20-55); Platelet Estimate Adequate; Total Cells Counted 100
[2022-05-08 08:43] LABS: INR 0.9; PT Patient Result 10.4 SECS (10.1-12.1)
[2022-05-08 08:47] LABS: Albumin 3.6 G/DL (3.4-5.0); Bilirubin,Total 0.4 MG/DL (0.20-1.00); Calcium 9.7 MG/DL (8.5-10.1); Osmolality,Calculated 279.4 MOS/KG (273-304); Potassium 3.8 MMOL/L (3.5-5.1); Total Protein 7.1 G/DL (6.4-8.2)
[2022-05-08] MEDS ORDERED: DIAZEPAM 5 MG TABLET ONE (10:01)
[2022-05-08] MEDS ORDERED: ASPIRIN 325 MG TABLET ONE (10:01)
[2022-05-08] MEDS ORDERED: diphenhydrAMINE CAP 50 MG CAPSULE ONE (10:01)
[2022-05-08] MEDS: SODIUM CHLORIDE 0.9% 1,000 ML IV SCH (10:07)
[2022-05-08] MEDS ORDERED: VERAPAMIL 5 MG/2 ML VIAL ONE (10:43)
[2022-05-08] MEDS ORDERED: HEPARIN/NACL 0.9% 2 UNITS/ML 2,000 UNIT/1,000 ML BAG IV ONE (10:43)
[2022-05-08] MEDS ORDERED: NITROGLYCERIN DRIP 50 MG/250 ML BOTTLE IV ONE (10:43)
[2022-05-08] MEDS ORDERED: ENOXAPARIN 30 MG/0.3 ML SYRINGE ONE (11:58)
[2022-05-08] MEDS ORDERED: ONDANSETRON 4 MG TABLET PO PRN (12:51)
[2022-05-08] MEDS ORDERED: FLUTICASONE 50 MCG NASAL SPRAY 16 GM BOTTLE BOTH NARES PRN (12:51)
[2022-05-08] MEDS ORDERED: ACETAMINOPHEN 325 MG TABLET PO PRN (12:52)
[2022-05-08] MEDS ORDERED: MORPHINE 2 MG/1 ML SYRINGE IV PRN (12:52)
[2022-05-08] MEDS ORDERED: DOCUSATE SODIUM 100 MG CAPSULE PO PRN (12:52)
[2022-05-08] MEDS ORDERED: guaiFENesin/DM ER 600-30 MG TABLET PO PRN (12:52)
[2022-05-08] MEDS ORDERED: BISACODYL 5 MG TABLET PO PRN (12:52)
[2022-05-08] MEDS ORDERED: ZALEPLON 5 MG CAPSULE PO PRN (12:52)
[2022-05-08] MEDS ORDERED: POTASSIUM CHLORIDE 20 MEQ TABLET PO PRN (12:52)
[2022-05-08] MEDS ORDERED: hydrALAZINE 20 MG/1 ML VIAL IV PRN (12:52)
[2022-05-08] MEDS ORDERED: PROMETHAZINE 25 MG TABLET PO PRN (12:52)
[2022-05-08] MEDS ORDERED: ONDANSETRON 4 MG/2 ML VIAL IV PRN (12:52)
[2022-05-08] MEDS ORDERED: MAGNESIUM SULF RIDER 4 GM/100 ML PREMIX IV PRN (12:52)
[2022-05-08] MEDS ORDERED: ALUMINUM/MAGNES/SIMETH MAX STR 30 ML UDCUP PO PRN (12:52)
[2022-05-08] MEDS ORDERED: MAGNESIUM SULF RIDER 2 GM/50 ML PREMIX IV PRN (12:52)
[2022-05-08] MEDS ORDERED: diphenhydrAMINE CAP 25 MG CAPSULE PO PRN (12:52)
[2022-05-08] MEDS: NITROGLYCERIN 2% OINT 1 INCH/GM PACK TOP SCH ×2 (13:53→21:13)
[2022-05-08] MEDS: GABAPENTIN 100 MG CAPSULE PO SCH ×2 (16:03→21:13)
[2022-05-08] MEDS: CHOLESTYRAMINE 4 GM PACK PO SCH (17:21)
[2022-05-08] MEDS ORDERED: SIMVASTATIN 20 MG TABLET PO SCH (21:00)
[2022-05-08] MEDS: FERROUS SULFATE 325 MG TABLET PO SCH (21:13)
[2022-05-08] MEDS: MEMANTINE 5 MG TABLET PO SCH (21:13)
[2022-05-08] MEDS: MAGNESIUM OXIDE 400 MG TABLET PO SCH (21:13)
[2022-05-09] MEDS: NITROGLYCERIN 2% OINT 1 INCH/GM PACK TOP SCH ×4 (02:39→21:10)
[2022-05-09 05:09] LABS: Basophils # 0.1 10*3/uL (0.0-0.2); Basophils % 0.8 % (0.0-0.8); Eosinophils # 0.8 10*3/uL (0.0-0.87); Eosinophils % 10.8 % (0.00-10.9); Hematocrit 33.2 VOL% (42.0-52.0); Hemoglobin 11.2 GM/DL (14.0-18.0); Immature Granulocytes % 0.4 %; Immature Granulocytes Absolute 0.03 #; Lymphocytes # 1.7 10*3/uL (1.4-4.0); Lymphocytes % 24.1 % (21.2-54.2); Mean Corpuscular HGB Conc 33.7 GM/DL (32-36); Mean Corpuscular Volume 92.2 FL (87-102); Mean Platelet Volume 9.3 FL (9.6-12.0); Monocytes # 0.4 10*3/uL (0.11-0.8); Monocytes % 5.9 % (1.7-12.7); Platelet Count 172 T/CUMM (130-400); Red Cell Distribution Width 13.9 % (9.3-17.3); White Blood Count 7.1 T/CUMM (4-12)
[2022-05-09 05:38] LABS: Albumin 2.9 G/DL (3.4-5.0); Bilirubin,Total 0.5 MG/DL (0.20-1.00); Calcium 8.9 MG/DL (8.5-10.1); Osmolality,Calculated 281.1 MOS/KG (273-304); Potassium 4.1 MMOL/L (3.5-5.1); Risk Ratio 3.72; Thyroid Stimulating Hormone 0.853 uIU/ml (0.358-3.74); VLDL Cholesterol 31.8 MG/DL
[2022-05-09] MEDS: SODIUM CHLORIDE 0.9% 1,000 ML IV SCH (07:00)
[2022-05-09] MEDS: CHOLESTYRAMINE 4 GM PACK PO SCH ×2 (08:08→17:19)
[2022-05-09] MEDS ORDERED: ASPIRIN EC 81 MG TABLET PO SCH (09:00)
[2022-05-09] MEDS: CHOLECALCIFEROL 5,000 UNIT TABLET PO SCH (09:07)
[2022-05-09] MEDS ORDERED: GLUCAGON 1 MG VIAL IM PRN (09:07)
[2022-05-09] MEDS: MEMANTINE 5 MG TABLET PO SCH ×2 (09:07→21:10)
[2022-05-09] MEDS: LOSARTAN 25 MG TABLET PO SCH (09:07)
[2022-05-09] MEDS ORDERED: DEXTROSE 10% 250 ML BAG IV PRN (09:07)
[2022-05-09] MEDS: FAMOTIDINE 20 MG TABLET PO SCH (09:08)
[2022-05-09] MEDS: MULTIVITAMIN (CENTRUM) TABLET PO SCH (09:08)
[2022-05-09] MEDS: ASPIRIN EC 81 MG TABLET PO SCH (09:08)
[2022-05-09] MEDS: GABAPENTIN 100 MG CAPSULE PO SCH ×3 (09:08→21:10)
[2022-05-09] MEDS: MAGNESIUM OXIDE 400 MG TABLET PO SCH ×2 (09:08→21:10)
[2022-05-09] MEDS: FERROUS SULFATE 325 MG TABLET PO SCH ×2 (09:08→21:10)
[2022-05-09] MEDS: CYANOCOBALAMIN 500 MCG TABLET PO SCH (09:08)
[2022-05-09] MEDS: CITALOPRAM 20 MG TABLET PO SCH (09:08)
[2022-05-09] MEDS: LEVOTHYROXINE 75 MCG TABLET PO SCH (09:08)
[2022-05-09] MEDS: OXYBUTYNIN 5 MG TABLET PO SCH (09:13)
[2022-05-09] MEDS: POTASSIUM CHLORIDE 20 MEQ TABLET PO SCH (09:13)
[2022-05-09] MEDS: INSULIN REGULAR 100 UNIT/ML SUBCUT SCH ×2 (11:39→17:19)
[2022-05-09] MEDS: ROSUVASTATIN 20 MG TABLET PO SCH (21:40)
[2022-05-10] MEDS: INSULIN REGULAR 100 UNIT/ML SUBCUT SCH ×5 (00:31→21:03)
[2022-05-10] MEDS: NITROGLYCERIN 2% OINT 1 INCH/GM PACK TOP SCH ×4 (02:01→20:58)
[2022-05-10 04:33] LABS: Basophils # 0.1 10*3/uL (0.0-0.2); Basophils % 0.7 % (0.0-0.8); Eosinophils # 0.7 10*3/uL (0.0-0.87); Eosinophils % 9.6 % (0.00-10.9); Hematocrit 31.3 VOL% (42.0-52.0); Hemoglobin 10.5 GM/DL (14.0-18.0); Immature Granulocytes % 0.4 %; Immature Granulocytes Absolute 0.03 #; Lymphocytes # 1.5 10*3/uL (1.4-4.0); Lymphocytes % 21.1 % (21.2-54.2); Mean Corpuscular HGB Conc 33.5 GM/DL (32-36); Mean Corpuscular Volume 92.3 FL (87-102); Mean Platelet Volume 8.9 FL (9.6-12.0); Monocytes # 0.6 10*3/uL (0.11-0.8); Monocytes % 7.7 % (1.7-12.7); Neutrophils % 60.5 % (38.7-73.9); Platelet Count 147 T/CUMM (130-400); Red Blood Count 3.39 MC/CUMM (3.8-5.5); Red Cell Distribution Width 13.6 % (9.3-17.3); White Blood Count 7.3 T/CUMM (4-12)
[2022-05-10 04:59] LABS: Alanine Aminotransferase 15 U/L (16-61); Alkaline Phosphatase 66 U/L (45-117); Aspartate Amino Transferase 14 U/L (0-37); Bilirubin,Total < 0.39 MG/DL (0.20-1.00); Blood Urea Nitrogen 14 MG/DL (7-18); Calcium 8.9 MG/DL (8.5-10.1); Carbon Dioxide 26 MMOL/L (21-32); Chloride 110 MMOL/L (98-107); Glucose 126 MG/DL (74-106); Osmolality,Calculated 283.3 MOS/KG (273-304); Potassium 3.7 MMOL/L (3.5-5.1); Sodium 141 MMOL/L (136-145); Total Protein 5.8 G/DL (6.4-8.2)
[2022-05-10] MEDS: CITALOPRAM 20 MG TABLET PO SCH (09:32)
[2022-05-10] MEDS: CYANOCOBALAMIN 500 MCG TABLET PO SCH (09:32)
[2022-05-10] MEDS: MEMANTINE 5 MG TABLET PO SCH ×2 (09:33→20:58)
[2022-05-10] MEDS: POTASSIUM CHLORIDE 20 MEQ TABLET PO SCH (09:33)
[2022-05-10] MEDS: FAMOTIDINE 20 MG TABLET PO SCH (09:33)
[2022-05-10] MEDS: ASPIRIN EC 81 MG TABLET PO SCH (09:33)
[2022-05-10] MEDS: MAGNESIUM OXIDE 400 MG TABLET PO SCH ×2 (09:33→20:58)
[2022-05-10] MEDS: OXYBUTYNIN 5 MG TABLET PO SCH (09:33)
[2022-05-10] MEDS: CHOLESTYRAMINE 4 GM PACK PO SCH ×2 (09:34→17:21)
[2022-05-10] MEDS: GABAPENTIN 100 MG CAPSULE PO SCH ×3 (09:34→20:58)
[2022-05-10] MEDS: CHOLECALCIFEROL 5,000 UNIT TABLET PO SCH (09:34)
[2022-05-10] MEDS: FERROUS SULFATE 325 MG TABLET PO SCH ×2 (09:34→20:58)
[2022-05-10] MEDS: LEVOTHYROXINE 75 MCG TABLET PO SCH (09:34)
[2022-05-10] MEDS: MULTIVITAMIN (CENTRUM) TABLET PO SCH (09:34)
[2022-05-10] MEDS: LOSARTAN 25 MG TABLET PO SCH (09:34)
[2022-05-11] MEDS: ROSUVASTATIN 20 MG TABLET PO SCH ×2 (01:19→22:10)
[2022-05-11] MEDS: CHLORHEXIDINE 0.12% ORAL RINSE 60 ML BOTTLE SWISH/SPIT SCH ×2 (01:20→09:57)
[2022-05-11] MEDS: NITROGLYCERIN 2% OINT 1 INCH/GM PACK TOP SCH ×4 (01:20→22:10)
[2022-05-11 03:46] LABS: Arterial Base Excess iSTAT -3 MMOL/L (-2.5-2.5); Arterial Bicarbonate iSTAT 22.4 MMOL/L (20-26); Arterial O2 Saturation iSTAT 96 % (95-100); Arterial PCO2 iSTAT 39 MM HG (35-48); Arterial PO2 iSTAT 82 MM HG (80-95); Arterial Total CO2 iSTAT 24 MMO/L (23-27)
[2022-05-11 05:43] LABS: Basophils % 0.5 % (0.0-0.8); Eosinophils # 1.9 10*3/uL (0.0-0.87); Eosinophils % 23.4 % (0.00-10.9); Hematocrit 33.6 VOL% (42.0-52.0); Hemoglobin 11.2 GM/DL (14.0-18.0); Immature Granulocytes % 0.4 %; Immature Granulocytes Absolute 0.03 #; Lymphocytes # 1.6 10*3/uL (1.4-4.0); Lymphocytes % 19.3 % (21.2-54.2); Mean Corpuscular HGB Conc 33.3 GM/DL (32-36); Mean Corpuscular Volume 93.9 FL (87-102); Mean Platelet Volume 9.1 FL (9.6-12.0); Monocytes # 0.5 10*3/uL (0.11-0.8); Monocytes % 6.6 % (1.7-12.7); Neutrophils % 49.8 % (38.7-73.9); Platelet Count 172 T/CUMM (130-400); Red Blood Count 3.58 MC/CUMM (3.8-5.5); Red Cell Distribution Width 13.8 % (9.3-17.3); White Blood Count 8.1 T/CUMM (4-12)
[2022-05-11 06:08] LABS: Eosinophils 25 % (0-10); Lymphocytes 16 % (20-55); Platelet Estimate Adequate; Total Cells Counted 100
[2022-05-11 06:09] LABS: Alanine Aminotransferase 17 U/L (16-61); Albumin 3.1 G/DL (3.4-5.0); Alkaline Phosphatase 60 U/L (45-117); Aspartate Amino Transferase 14 U/L (0-37); Bilirubin,Total < 0.39 MG/DL (0.20-1.00); Blood Urea Nitrogen 14 MG/DL (7-18); Calcium 9.4 MG/DL (8.5-10.1); Carbon Dioxide 25 MMOL/L (21-32); Chloride 110 MMOL/L (98-107); Glucose 95 MG/DL (74-106); Osmolality,Calculated 281.3 MOS/KG (273-304); Potassium 4.1 MMOL/L (3.5-5.1); Sodium 141 MMOL/L (136-145); Total Protein 6.3 G/DL (6.4-8.2)
[2022-05-11] MEDS: SODIUM CHLORIDE 0.9% 1,000 ML IV SCH ×3 (06:22→15:02)
[2022-05-11] MEDS: INSULIN REGULAR 100 UNIT/ML SUBCUT SCH ×4 (08:15→22:11)
[2022-05-11] MEDS: CHOLESTYRAMINE 4 GM PACK PO SCH ×2 (09:51→16:26)
[2022-05-11] MEDS: FERROUS SULFATE 325 MG TABLET PO SCH ×2 (09:52→22:10)
[2022-05-11] MEDS: LEVOTHYROXINE 75 MCG TABLET PO SCH (09:52)
[2022-05-11] MEDS: LOSARTAN 25 MG TABLET PO SCH (09:53)
[2022-05-11] MEDS: POTASSIUM CHLORIDE 20 MEQ TABLET PO SCH (09:53)
[2022-05-11] MEDS: CHOLECALCIFEROL 5,000 UNIT TABLET PO SCH (09:53)
[2022-05-11] MEDS: CYANOCOBALAMIN 500 MCG TABLET PO SCH (09:53)
[2022-05-11] MEDS: OXYBUTYNIN 5 MG TABLET PO SCH (09:53)
[2022-05-11] MEDS: FAMOTIDINE 20 MG TABLET PO SCH (09:53)
[2022-05-11] MEDS: MULTIVITAMIN (CENTRUM) TABLET PO SCH (09:53)
[2022-05-11] MEDS: ASPIRIN EC 81 MG TABLET PO SCH (09:54)
[2022-05-11] MEDS: GABAPENTIN 100 MG CAPSULE PO SCH ×3 (09:54→22:10)
[2022-05-11] MEDS: MEMANTINE 5 MG TABLET PO SCH ×2 (09:54→22:09)
[2022-05-11] MEDS: CITALOPRAM 20 MG TABLET PO SCH (09:54)
[2022-05-11] MEDS: MAGNESIUM OXIDE 400 MG TABLET PO SCH ×2 (09:54→22:10)
[2022-05-11] MEDS: CHLORHEXIDINE 4% SOLN 118 ML BOTTLE TOP SCH ×2 (16:26→23:02)
[2022-05-12] MEDS: CHLORHEXIDINE 0.12% ORAL RINSE 60 ML BOTTLE SWISH/SPIT SCH ×3 (00:35→21:14)
[2022-05-12] MEDS: NITROGLYCERIN 2% OINT 1 INCH/GM PACK TOP SCH ×2 (01:35→12:14)
[2022-05-12] MEDS ORDERED: PAPAVERINE 60 MG/2 ML VIAL ONE (04:14)
[2022-05-12] MEDS ORDERED: VANCOMYCIN 1,000 MG VIAL ONE (04:15)
[2022-05-12] MEDS ORDERED: VANCOMYCIN 500 MG VIAL ONE (04:15)
[2022-05-12] MEDS: CHLORHEXIDINE 4% SOLN 118 ML BOTTLE TOP SCH (04:42)
[2022-05-12] MEDS ORDERED: DIAZEPAM 5 MG TABLET PO ONE (05:00)
[2022-05-12] MEDS ORDERED: VANCOMYCIN INJ 1,000 MG in SODIUM CHLORIDE 0.9% 250 ML IV ONE (05:00)
[2022-05-12 05:42] LABS: Basophils % 0.3 % (0.0-0.8); Eosinophils # 2.8 10*3/uL (0.0-0.87); Eosinophils % 23.4 % (0.00-10.9); Hemoglobin 12.5 GM/DL (14.0-18.0); Immature Granulocytes % 0.4 %; Immature Granulocytes Absolute 0.05 #; Lymphocytes # 1.8 10*3/uL (1.4-4.0); Lymphocytes % 15.3 % (21.2-54.2); Mean Corpuscular HGB Conc 33.8 GM/DL (32-36); Mean Corpuscular Volume 92.3 FL (87-102); Monocytes # 0.7 10*3/uL (0.11-0.8); Monocytes % 6.2 % (1.7-12.7); Neutrophils % 54.4 % (38.7-73.9); Platelet Count 191 T/CUMM (130-400); Red Blood Count 4.01 MC/CUMM (3.8-5.5); Red Cell Distribution Width 13.7 % (9.3-17.3); White Blood Count 11.7 T/CUMM (4-12)
[2022-05-12] MEDS ORDERED: SODIUM CHLORIDE 0.9% 250 ML IV ONE (05:48)
[2022-05-12] MEDS ORDERED: LACTATED RINGERS 1,000 ML IV ONE (05:48)
[2022-05-12] MEDS ORDERED: PHENYLEPHRINE DRIP 20 MG/250 ML PREMIX IV ONE (05:48)
[2022-05-12] MEDS ORDERED: LIDOCAINE 2% 5 ML VIAL ONE ×2 (05:48→10:12)
[2022-05-12] MEDS ORDERED: CALCIUM CHLORIDE 1,000 MG/10 ML VIAL IV ONE (05:48)
[2022-05-12] MEDS ORDERED: VECURONIUM 10 MG VIAL IV ONE (05:48)
[2022-05-12] MEDS ORDERED: ETOMIDATE 40 MG/20 ML VIAL IV ONE (05:48)
[2022-05-12] MEDS ORDERED: SODIUM CHLORIDE 0.9% 1,000 ML IV ONE (05:48)
[2022-05-12] MEDS ORDERED: HEPARIN/NACL 0.9% 2 UNITS/ML 1,000 UNIT/500 ML BAG IV ONE (05:48)
[2022-05-12] MEDS ORDERED: AMINOCAPROIC ACID 5,000 MG/20 ML VIAL ONE (05:49)
[2022-05-12] MEDS ORDERED: ePHEDrine 50 MG/ML VIAL ONE (06:00)
[2022-05-12] MEDS ORDERED: SUFentanil 250 MCG/5 ML AMP ONE (06:00)
[2022-05-12] MEDS ORDERED: MIDAZOLAM 10 MG/2 ML VIAL ONE (06:00)
[2022-05-12 06:03] LABS: Albumin 3.5 G/DL (3.4-5.0); Bilirubin,Total 0.4 MG/DL (0.20-1.00); Calcium 9.6 MG/DL (8.5-10.1); Osmolality,Calculated 280.4 MOS/KG (273-304); Potassium 4.1 MMOL/L (3.5-5.1); Total Protein 6.5 G/DL (6.4-8.2)
[2022-05-12 06:14] LABS: Eosinophils 20 % (0-10); Lymphocytes 17 % (20-55); Platelet Estimate Adequate; Total Cells Counted 100
[2022-05-12 07:22] LABS: ABG Base Excess -3.9 MMOL/L (-2.5-2.5); ABG HCO3 21.2 MMOL/L (20-26); ABG PCO2 34.6 MM HG (35-48); ABG PH 7.381 (7.35-7.45); ABG TCO2 18.4 MMOL/L (23-27); Glucose Heart Surgery 102 MG/DL (74-106); Hematocrit Heart Surgery 35.1 PERCENT (42-52); Hemoglobin Heart Surgery 11.4 G/DL (14.0-18.0); Ionized Calcium Arterial 1.21 MMOL/L (1.21-1.46); PCO2 Patient Temp Arterial 34.6 MMHG; PH Patient Temp Arterial 7.381; Patient Temperature 37 CELCIUS; Potassium Heart/CVR 3.9 MMOL/L (3.5-5.1); Sodium Heart/CVR 140 MMOL/L (135-145)
[2022-05-12 07:32] LABS: Bilirubin,Urine Negative (Negative); Blood, Urine Trace mg/dL (Negative); Glucose,Urine (UA) Negative (Negative); Ketones,Urine Negative (Negative); Mucus,Urine Occasional /LPF (Occasional); Nitrite,Urine Negative (Negative); Protein,Urine Negative (Negative); RBC,Urine 1 /HPF (0-4); Squamous Epithelial Cell,Urine Occasional /HPF (0-10); Urine Appearance Clear (Clear); Urine Color Yellow (Yellow); Urine Urobilinogen 0.2 eU/dL (<2.0)
[2022-05-12] MEDS ORDERED: NITROGLYCERIN DRIP 50 MG/250 ML BOTTLE IV ONE (08:29)
[2022-05-12] MEDS ORDERED: POTASSIUM CHLORIDE RIDER 20 MEQ/100 ML PREMIX IV ONE (08:51)
[2022-05-12] MEDS ORDERED: NITROPRUSSIDE 50 MG/2 ML VIAL ONE (08:51)
[2022-05-12] MEDS ORDERED: SODIUM BICARBONATE 50 MEQ/50 ML VIAL IV ONE ×2 (08:51→10:14)
[2022-05-12] MEDS ORDERED: PHENYLEPHRINE DRIP 40 MG/250 ML PREMIX IV ONE (08:52)
[2022-05-12] MEDS ORDERED: CALCIUM CHLORIDE 1,000 MG/10 ML SYRINGE IV ONE (08:52)
[2022-05-12] MEDS ORDERED: ALBUMIN 5% 25.0 GM/500 ML VIAL IV ONE (08:53)
[2022-05-12 09:00] LABS: Hematocrit Heart Surgery 23.2 PERCENT (42-52); Hemoglobin Heart Surgery 7.4 G/DL (14.0-18.0); PCO2 Patient Temp Venous 36.1 MM HG; PH Patient Temp Venous 7.392; PO2 Patient Temp Venous 43.1 MM HG; Potassium Heart/CVR 4.4 MMOL/L (3.5-5.1); VBG Base Excess -2.5 MEQ/L (0-4); VBG HCO3 22.2 MEQ/L (24-28); VBG Oxygen Saturation 84.1 %; VBG PCO2 39.8 MMHG (41-51); VBG PH 7.363; VBG PO2 49.4 MMHG (17-40); VBG Total CO2 21.4 MMOL/L
[2022-05-12 09:30] LABS: Hematocrit Heart Surgery 24.5 PERCENT (42-52); Hemoglobin Heart Surgery 7.9 G/DL (14.0-18.0); PCO2 Patient Temp Venous 35.5 MM HG; PH Patient Temp Venous 7.411; PO2 Patient Temp Venous 40.1 MM HG; Potassium Heart/CVR 4.1 MMOL/L (3.5-5.1); VBG Base Excess -1.6 MEQ/L (0-4); VBG HCO3 22.9 MEQ/L (24-28); VBG Oxygen Saturation 81.9 %; VBG PCO2 39.1 MMHG (41-51); VBG PH 7.382; VBG Total CO2 21.8 MMOL/L
[2022-05-12 10:11] LABS: ABG Base Excess -3.2 MMOL/L (-2.5-2.5); ABG HCO3 21.7 MMOL/L (20-26); ABG Oxygen Saturation 99.9 % (95-100); ABG PCO2 38.1 MM HG (35-48); ABG PH 7.365 (7.35-7.45); ABG TCO2 20.2 MMOL/L (23-27); Glucose Heart Surgery 233 MG/DL (74-106); Hematocrit Heart Surgery 27.3 PERCENT (42-52); Hemoglobin Heart Surgery 8.8 G/DL (14.0-18.0); Ionized Calcium Arterial 1.25 MMOL/L (1.21-1.46); PCO2 Patient Temp Arterial 38.1 MMHG; PH Patient Temp Arterial 7.365; Patient Temperature 37 CELCIUS; Potassium Heart/CVR 3.5 MMOL/L (3.5-5.1); Sodium Heart/CVR 132 MMOL/L (135-145)
[2022-05-12] MEDS ORDERED: ALBUMIN 25% 25 GM/100 ML VIAL IV ONE (10:12)
[2022-05-12] MEDS ORDERED: MAGNESIUM SULFATE 5 GM/10 ML VIAL IV ONE (10:12)
[2022-05-12] MEDS ORDERED: methylPREDNISolone SOD SUC 1,000 MG/8 ML VIAL ONE (10:12)
[2022-05-12] MEDS ORDERED: DEXTROSE 5% KCL 20 MEQ 20 MEQ/1,000 ML BAG IV ONE (10:12)
[2022-05-12] MEDS ORDERED: HEPARIN 10,000 UNIT/10 ML VIAL ONE (10:13)
[2022-05-12] MEDS ORDERED: PROTAMINE SULFATE 250 MG/25 ML VIAL IV ONE (10:13)
[2022-05-12] MEDS ORDERED: MANNITOL 12.5 GM/50 ML VIAL IV ONE (10:14)
[2022-05-12] MEDS ORDERED: FUROSEMIDE 20 MG/2 ML VIAL ONE (10:14)
[2022-05-12] MEDS ORDERED: PROTAMINE SULFATE 50 MG/5 ML VIAL IV ONE (10:14)
[2022-05-12] MEDS ORDERED: CHLORHEXIDINE 4% SOLN 118 ML BOTTLE TOP PRN (10:25)
[2022-05-12] MEDS ORDERED: VECURONIUM 10 MG VIAL IV PRN ×2 (10:25)
[2022-05-12] MEDS ORDERED: MIDAZOLAM 10 MG/2 ML VIAL IV PRN (10:25)
[2022-05-12] MEDS ORDERED: MIDAZOLAM 2 MG/2 ML VIAL IV PRN (10:25)
[2022-05-12] MEDS ORDERED: ACETAMINOPHEN 650 MG SUPP RECTAL PRN (10:25)
[2022-05-12] MEDS ORDERED: NITROPRUSSIDE 100 MG in DEXTROSE 5% 250 ML IV PRN (10:25)
[2022-05-12] MEDS ORDERED: ONDANSETRON 4 MG/2 ML VIAL IV PRN (10:25)
[2022-05-12] MEDS ORDERED: MAGNESIUM SULF RIDER 4 GM/100 ML PREMIX IV PRN (10:25)
[2022-05-12] MEDS ORDERED: POTASSIUM CHLORIDE RIDER 10 MEQ/100 ML PREMIX IV PRN (10:25)
[2022-05-12] MEDS ORDERED: INSULIN REGULAR 100 UNIT/ML IV PRN (10:25)
[2022-05-12] MEDS ORDERED: LACTATED RINGERS 250 ML IV PRN (10:25)
[2022-05-12] MEDS ORDERED: INSULIN REGULAR 100 UNIT/ML IV ONE (10:25)
[2022-05-12] MEDS ORDERED: MORPHINE 10 MG/1 ML VIAL IV PRN (10:25)
[2022-05-12] MEDS ORDERED: PHENYLEPHRINE DRIP 40 MG/250 ML PREMIX IV PRN (10:25)
[2022-05-12] MEDS ORDERED: CALCIUM CHLORIDE 1,000 MG/10 ML SYRINGE IV PRN (10:25)
[2022-05-12] MEDS ORDERED: MAGNESIUM SULF RIDER 2 GM/50 ML PREMIX IV PRN (10:25)
[2022-05-12] MEDS ORDERED: DEXTROSE 10% 250 ML BAG IV PRN ×2 (10:25)
[2022-05-12] MEDS ORDERED: SEVOFLURANE 1 UNIT/15 MINUTE INH ONE (10:28)
[2022-05-12] MEDS ORDERED: INSULIN REGULAR DRIP 100 ML IV SCH (10:30)
[2022-05-12] MEDS: SODIUM CHLORIDE 0.45% 1,000 ML IV SCH ×2 (10:45)
[2022-05-12] MEDS: ALBUMIN 5% 12.5 GM/250 ML VIAL IV PRN ×2 (11:08→18:25)
[2022-05-12 11:09] LABS: Basophils % 0.3 % (0.0-0.8); Eosinophils # 1.4 10*3/uL (0.0-0.87); Eosinophils % 12.2 % (0.00-10.9); Hematocrit 28.6 VOL% (42.0-52.0); Hemoglobin 9.8 GM/DL (14.0-18.0); Immature Granulocytes % 1.2 %; Immature Granulocytes Absolute 0.14 #; Lymphocytes # 1.1 10*3/uL (1.4-4.0); Lymphocytes % 9.8 % (21.2-54.2); Mean Corpuscular HGB Conc 34.3 GM/DL (32-36); Mean Corpuscular Volume 91.7 FL (87-102); Mean Platelet Volume 9.1 FL (9.6-12.0); Monocytes # 0.5 10*3/uL (0.11-0.8); Monocytes % 4.4 % (1.7-12.7); Neutrophils % 72.1 % (38.7-73.9); Platelet Count 142 T/CUMM (130-400); Red Blood Count 3.12 MC/CUMM (3.8-5.5); Red Cell Distribution Width 13.6 % (9.3-17.3); White Blood Count 11.7 T/CUMM (4-12)
[2022-05-12 11:11] LABS: ABG Base Excess -3.3 MMOL/L (-2.5-2.5); ABG HCO3 21.7 MMOL/L (20-26); ABG Oxygen Saturation 99.1 % (95-100); ABG PCO2 41.8 MM HG (35-48); ABG PH 7.337 (7.35-7.45); ABG TCO2 20.5 MMOL/L (23-27); Glucose Heart Surgery 210 MG/DL (74-106); Hematocrit Heart Surgery 30.9 PERCENT (42-52); Potassium Heart/CVR 3.4 MMOL/L (3.5-5.1)
[2022-05-12] MEDS: POTASSIUM CHLORIDE RIDER 20 MEQ/100 ML PREMIX IV PRN ×5 (11:18→20:33)
[2022-05-12 11:19] LABS: INR 1.1; PT Patient Result 11.9 SECS (10.1-12.1); Partial Thromboplastin Time 28.8 SECS (23.7-32.9)
[2022-05-12 11:33] LABS: Albumin 2.8 G/DL (3.4-5.0); Bilirubin,Total 0.8 MG/DL (0.20-1.00); Calcium 8.9 MG/DL (8.5-10.1); Osmolality,Calculated 281.7 MOS/KG (273-304); Potassium 3.5 MMOL/L (3.5-5.1); Total Protein 5.4 G/DL (6.4-8.2)
[2022-05-12 11:37] LABS: Eosinophils 11 % (0-10); Lymphocytes 12 % (20-55); Metamyelocytes 1 %; Platelet Estimate Adequate; Polychromasia Slight; Total Cells Counted 100
[2022-05-12 12:00] LABS: ABG Base Excess -4.1 MMOL/L (-2.5-2.5); ABG Oxygen Saturation 98.7 % (95-100); ABG PCO2 42.4 MM HG (35-48); ABG PH 7.319 (7.35-7.45); ABG TCO2 19.9 MMOL/L (23-27); Glucose Heart Surgery 204 MG/DL (74-106); Hematocrit Heart Surgery 32.5 PERCENT (42-52); Hemoglobin Heart Surgery 10.5 G/DL (14.0-18.0)
[2022-05-12] MEDS: ASPIRIN EC 81 MG TABLET PO SCH (12:14)
[2022-05-12] MEDS: CHOLESTYRAMINE 4 GM PACK PO SCH (12:14)
[2022-05-12] MEDS: INSULIN REGULAR 100 UNIT/ML SUBCUT SCH (12:14)
[2022-05-12] MEDS: SODIUM CHLORIDE 0.9% 1,000 ML IV SCH ×2 (12:14→12:17)
[2022-05-12] MEDS: LOSARTAN 25 MG TABLET PO SCH (12:15)
[2022-05-12] MEDS: MULTIVITAMIN (CENTRUM) TABLET PO SCH (12:15)
[2022-05-12] MEDS: FERROUS SULFATE 325 MG TABLET PO SCH (12:15)
[2022-05-12] MEDS: OXYBUTYNIN 5 MG TABLET PO SCH (12:15)
[2022-05-12] MEDS: CITALOPRAM 20 MG TABLET PO SCH (12:15)
[2022-05-12] MEDS: MAGNESIUM OXIDE 400 MG TABLET PO SCH (12:16)
[2022-05-12] MEDS: FAMOTIDINE 20 MG TABLET PO SCH (12:16)
[2022-05-12] MEDS: POTASSIUM CHLORIDE 20 MEQ TABLET PO SCH (12:16)
[2022-05-12] MEDS: GABAPENTIN 100 MG CAPSULE PO SCH (12:16)
[2022-05-12] MEDS: MEMANTINE 5 MG TABLET PO SCH (12:16)
[2022-05-12] MEDS: CHOLECALCIFEROL 5,000 UNIT TABLET PO SCH (12:17)
[2022-05-12] MEDS: LEVOTHYROXINE 75 MCG TABLET PO SCH (12:17)
[2022-05-12] MEDS: CYANOCOBALAMIN 500 MCG TABLET PO SCH (12:17)
[2022-05-12 13:23] LABS: ABG Base Excess -3.6 MMOL/L (-2.5-2.5); ABG HCO3 21.4 MMOL/L (20-26); ABG Oxygen Saturation 97.6 % (95-100); ABG PCO2 42.7 MM HG (35-48); ABG PH 7.325 (7.35-7.45); ABG TCO2 20.3 MMOL/L (23-27); Glucose Heart Surgery 158 MG/DL (74-106); Hematocrit Heart Surgery 31.8 PERCENT (42-52); Hemoglobin Heart Surgery 10.3 G/DL (14.0-18.0); Potassium Heart/CVR 3.7 MMOL/L (3.5-5.1)
[2022-05-12] MEDS ORDERED: LACTATED RINGERS 1,000 ML IV PRN (13:28)
[2022-05-12 16:22] LABS: ABG Base Excess -2.1 MMOL/L (-2.5-2.5); ABG HCO3 22.6 MMOL/L (20-26); ABG Oxygen Saturation 97.2 % (95-100); ABG PCO2 45.2 MM HG (35-48); ABG PH 7.333 (7.35-7.45); ABG TCO2 21.5 MMOL/L (23-27); Glucose Heart Surgery 127 MG/DL (74-106); Hematocrit Heart Surgery 35.9 PERCENT (42-52); Hemoglobin Heart Surgery 11.6 G/DL (14.0-18.0)
[2022-05-12 18:32] LABS: ABG Base Excess -2.6 MMOL/L (-2.5-2.5); ABG HCO3 22.3 MMOL/L (20-26); ABG Oxygen Saturation 97.4 % (95-100); ABG PCO2 43.6 MM HG (35-48); ABG PH 7.337 (7.35-7.45); ABG TCO2 20.7 MMOL/L (23-27); Glucose Heart Surgery 119 MG/DL (74-106); Hematocrit Heart Surgery 38.2 PERCENT (42-52); Hemoglobin Heart Surgery 12.4 G/DL (14.0-18.0); Potassium Heart/CVR 3.9 MMOL/L (3.5-5.1)
[2022-05-12 18:49] LABS: CKMB % 4.32 %
[2022-05-12 18:51] LABS: High Sensitive Troponin I* 3180.2 ng/L (0-78)
[2022-05-12 20:17] LABS: ABG Base Excess -2.5 MMOL/L (-2.5-2.5); ABG HCO3 22.4 MMOL/L (20-26); ABG Oxygen Saturation 98.5 % (95-100); ABG PCO2 42.2 MM HG (35-48); ABG PH 7.347 (7.35-7.45); Glucose Heart Surgery 111 MG/DL (74-106); Hematocrit Heart Surgery 32.4 PERCENT (42-52); Hemoglobin Heart Surgery 10.5 G/DL (14.0-18.0); Potassium Heart/CVR 4.2 MMOL/L (3.5-5.1)
[2022-05-12 21:13] LABS: ABG Base Excess -2.2 MMOL/L (-2.5-2.5); ABG HCO3 22.6 MMOL/L (20-26); ABG Oxygen Saturation 98.6 % (95-100); ABG PCO2 42.4 MM HG (35-48); ABG PH 7.349 (7.35-7.45); ABG TCO2 21.3 MMOL/L (23-27); Glucose Heart Surgery 106 MG/DL (74-106); Hematocrit Heart Surgery 31.3 PERCENT (42-52); Hemoglobin Heart Surgery 10.1 G/DL (14.0-18.0); Potassium Heart/CVR 4.8 MMOL/L (3.5-5.1)
[2022-05-12] MEDS: VANCOMYCIN INJ 1,000 MG in SODIUM CHLORIDE 0.9% 250 ML IV SCH (22:09)
[2022-05-12 22:11] LABS: ABG Base Excess -1.8 MMOL/L (-2.5-2.5); ABG HCO3 22.9 MMOL/L (20-26); ABG Oxygen Saturation 98.1 % (95-100); ABG PCO2 41.4 MM HG (35-48); ABG PH 7.361 (7.35-7.45); ABG TCO2 21.4 MMOL/L (23-27); Glucose Heart Surgery 111 MG/DL (74-106); Hematocrit Heart Surgery 31.5 PERCENT (42-52); Hemoglobin Heart Surgery 10.2 G/DL (14.0-18.0); Potassium Heart/CVR 4.6 MMOL/L (3.5-5.1)
[2022-05-13 00:31] LABS: ABG Base Excess -2.7 MMOL/L (-2.5-2.5); ABG HCO3 22.1 MMOL/L (20-26); ABG Oxygen Saturation 95.5 % (95-100); ABG PCO2 40.1 MM HG (35-48); ABG PH 7.358 (7.35-7.45); ABG PO2 77.7 MM HG (80-95); ABG TCO2 20.6 MMOL/L (23-27); Glucose Heart Surgery 151 MG/DL (74-106); Hematocrit Heart Surgery 30.6 PERCENT (42-52); Hemoglobin Heart Surgery 9.9 G/DL (14.0-18.0); Potassium Heart/CVR 4.7 MMOL/L (3.5-5.1)
[2022-05-13 03:23] LABS: ABG Base Excess -1.9 MMOL/L (-2.5-2.5); ABG HCO3 22.9 MMOL/L (20-26); ABG PCO2 38.4 MM HG (35-48); ABG PH 7.383 (7.35-7.45); Glucose Heart Surgery 159 MG/DL (74-106); Hematocrit Heart Surgery 29.9 PERCENT (42-52); Hemoglobin Heart Surgery 9.7 G/DL (14.0-18.0); Potassium Heart/CVR 4.4 MMOL/L (3.5-5.1)
[2022-05-13 03:25] LABS: Eosinophils % 0.1 % (0.00-10.9); Hematocrit 28.9 VOL% (42.0-52.0); Hemoglobin 9.7 GM/DL (14.0-18.0); Immature Granulocytes % 0.4 %; Immature Granulocytes Absolute 0.04 #; Lymphocytes # 0.7 10*3/uL (1.4-4.0); Lymphocytes % 6.6 % (21.2-54.2); Mean Corpuscular HGB Conc 33.6 GM/DL (32-36); Mean Corpuscular Volume 92.3 FL (87-102); Mean Platelet Volume 9.4 FL (9.6-12.0); Monocytes # 0.4 10*3/uL (0.11-0.8); Neutrophils % 88.9 % (38.7-73.9); Platelet Count 139 T/CUMM (130-400); Red Blood Count 3.13 MC/CUMM (3.8-5.5); White Blood Count 10.3 T/CUMM (4-12)
[2022-05-13 03:45] LABS: CKMB % 4.47 %
[2022-05-13 03:47] LABS: High Sensitive Troponin I* 4963.1 ng/L (0-78)
[2022-05-13] MEDS: POTASSIUM CHLORIDE RIDER 20 MEQ/100 ML PREMIX IV PRN (03:52)
[2022-05-13 03:56] LABS: Albumin 3.2 G/DL (3.4-5.0); Bilirubin,Direct 0.17 MG/DL (0.0-0.20); Bilirubin,Total 0.4 MG/DL (0.20-1.00); Calcium 8.3 MG/DL (8.5-10.1); Osmolality,Calculated 287.1 MOS/KG (273-304); Potassium 4.5 MMOL/L (3.5-5.1); Total Protein 5.6 G/DL (6.4-8.2)
[2022-05-13] MEDS ORDERED: FLUTICASONE 50 MCG NASAL SPRAY 16 GM BOTTLE BOTH NARES PRN (07:30)
[2022-05-13] MEDS: ASCORBIC ACID 500 MG TABLET PO SCH ×2 (08:38→21:01)
[2022-05-13] MEDS: CITALOPRAM 20 MG TABLET PO SCH (08:39)
[2022-05-13] MEDS: ASPIRIN EC 81 MG TABLET PO SCH (08:39)
[2022-05-13] MEDS: GABAPENTIN 100 MG CAPSULE PO SCH ×3 (08:39→21:02)
[2022-05-13] MEDS: METOPROLOL TARTRATE 25 MG TABLET PO SCH ×2 (08:39→21:05)
[2022-05-13] MEDS: LEVOTHYROXINE 75 MCG TABLET PO SCH (08:39)
[2022-05-13] MEDS: PANTOPRAZOLE 40 MG TABLET PO SCH (08:43)
[2022-05-13] MEDS: CHLORHEXIDINE 0.12% ORAL RINSE 60 ML BOTTLE SWISH/SPIT SCH ×2 (09:18→21:07)
[2022-05-13 10:46] LABS: CKMB % 2.9 %; High Sensitive Troponin I* 4058.8 ng/L (0-78)
[2022-05-13] MEDS ORDERED: ACETAMINOPHEN 325 MG TABLET PO PRN (11:22)
[2022-05-13] MEDS: VANCOMYCIN INJ 1,000 MG in SODIUM CHLORIDE 0.9% 250 ML IV SCH ×2 (12:05→23:01)
[2022-05-13] MEDS: INSULIN REGULAR 100 UNIT/ML SUBCUT SCH ×3 (12:06→20:59)
[2022-05-13] MEDS: oxyCODONE/ACETAMINOPHEN 5-325 MG TABLET PO PRN (17:28)
[2022-05-13] MEDS: ROSUVASTATIN 20 MG TABLET PO SCH (21:02)
[2022-05-14] MEDS: INSULIN REGULAR 100 UNIT/ML SUBCUT SCH ×6 (00:20→21:59)
[2022-05-14] MEDS: oxyCODONE/ACETAMINOPHEN 5-325 MG TABLET PO PRN ×5 (01:40→21:30)
[2022-05-14 04:49] LABS: Basophils % 0.1 % (0.0-0.8); Eosinophils # 0.1 10*3/uL (0.0-0.87); Eosinophils % 0.5 % (0.00-10.9); Hematocrit 27.2 VOL% (42.0-52.0); Immature Granulocytes % 0.5 %; Immature Granulocytes Absolute 0.06 #; Lymphocytes # 1.4 10*3/uL (1.4-4.0); Lymphocytes % 10.6 % (21.2-54.2); Mean Corpuscular HGB Conc 33.1 GM/DL (32-36); Mean Corpuscular Volume 93.2 FL (87-102); Mean Platelet Volume 9.4 FL (9.6-12.0); Monocytes # 1.1 10*3/uL (0.11-0.8); Monocytes % 8.1 % (1.7-12.7); Neutrophils % 80.2 % (38.7-73.9); Platelet Count 145 T/CUMM (130-400); Red Blood Count 2.92 MC/CUMM (3.8-5.5); Red Cell Distribution Width 14.1 % (9.3-17.3)
[2022-05-14] MEDS ORDERED: HEPARIN/NACL 0.9% 2 UNITS/ML 1,000 UNIT/500 ML BAG IV ONE (04:49)
[2022-05-14 05:07] LABS: Albumin 2.9 G/DL (3.4-5.0); Bilirubin,Direct 0.14 MG/DL (0.0-0.20); Bilirubin,Total 0.5 MG/DL (0.20-1.00); Osmolality,Calculated 283.4 MOS/KG (273-304); Potassium 4.3 MMOL/L (3.5-5.1); Total Protein 5.7 G/DL (6.4-8.2)
[2022-05-14 05:10] LABS: CKMB % 1.95 %; High Sensitive Troponin I* 2328.7 ng/L (0-78)
[2022-05-14] MEDS: SODIUM CHLORIDE 0.45% 1,000 ML IV SCH ×2 (07:00)
[2022-05-14] MEDS: ASCORBIC ACID 500 MG TABLET PO SCH ×2 (08:30→21:29)
[2022-05-14] MEDS: CITALOPRAM 20 MG TABLET PO SCH (08:30)
[2022-05-14] MEDS: PANTOPRAZOLE 40 MG TABLET PO SCH (08:30)
[2022-05-14] MEDS: LEVOTHYROXINE 75 MCG TABLET PO SCH (08:30)
[2022-05-14] MEDS: GABAPENTIN 100 MG CAPSULE PO SCH ×3 (08:30→21:29)
[2022-05-14] MEDS: ASPIRIN EC 81 MG TABLET PO SCH (08:30)
[2022-05-14] MEDS: METOPROLOL TARTRATE 25 MG TABLET PO SCH ×2 (08:30→21:29)
[2022-05-14] MEDS ORDERED: GLUCAGON 1 MG VIAL IM PRN (08:48)
[2022-05-14] MEDS ORDERED: MAGNESIUM SULF RIDER 2 GM/50 ML PREMIX IV PRN (08:48)
[2022-05-14] MEDS ORDERED: ALUMINUM/MAGNES/SIMETH MAX STR 30 ML UDCUP PO PRN (08:48)
[2022-05-14] MEDS ORDERED: MAGNESIUM HYDROXIDE SUSP 30 ML UDCUP PO PRN (08:48)
[2022-05-14] MEDS ORDERED: ZALEPLON 5 MG CAPSULE PO PRN (08:48)
[2022-05-14] MEDS ORDERED: ONDANSETRON 4 MG/2 ML VIAL IV PRN (08:48)
[2022-05-14] MEDS ORDERED: MAGNESIUM SULF RIDER 4 GM/100 ML PREMIX IV PRN (08:48)
[2022-05-14] MEDS ORDERED: ACETAMINOPHEN 325 MG TABLET PO PRN (08:48)
[2022-05-14] MEDS ORDERED: DEXTROSE 10% 250 ML BAG IV PRN (08:58)
[2022-05-14] MEDS: DOCUSATE SODIUM 100 MG CAPSULE PO SCH (10:00)
[2022-05-14] MEDS: FERROUS SULFATE 325 MG TABLET PO SCH (10:00)
[2022-05-14] MEDS: CHLORHEXIDINE 0.12% ORAL RINSE 60 ML BOTTLE SWISH/SPIT SCH ×2 (10:10→21:30)
[2022-05-14] MEDS: VANCOMYCIN INJ 1,000 MG in SODIUM CHLORIDE 0.9% 250 ML IV SCH (10:30)
[2022-05-14] MEDS: ROSUVASTATIN 20 MG TABLET PO SCH (21:30)
[2022-05-15] MEDS: oxyCODONE/ACETAMINOPHEN 5-325 MG TABLET PO PRN ×2 (04:41→20:58)
[2022-05-15 05:32] LABS: Basophils % 0.2 % (0.0-0.8); Eosinophils # 0.7 10*3/uL (0.0-0.87); Eosinophils % 8.3 % (0.00-10.9); Hematocrit 25.8 VOL% (42.0-52.0); Hemoglobin 8.4 GM/DL (14.0-18.0); Immature Granulocytes Absolute 0.09 #; Lymphocytes # 1.2 10*3/uL (1.4-4.0); Lymphocytes % 14.2 % (21.2-54.2); Mean Corpuscular HGB Conc 32.6 GM/DL (32-36); Mean Corpuscular Volume 94.9 FL (87-102); Mean Platelet Volume 9.9 FL (9.6-12.0); Monocytes # 0.8 10*3/uL (0.11-0.8); Monocytes % 9.7 % (1.7-12.7); Neutrophils % 66.6 % (38.7-73.9); Platelet Count 143 T/CUMM (130-400); Red Blood Count 2.72 MC/CUMM (3.8-5.5); White Blood Count 8.6 T/CUMM (4-12)
[2022-05-15 05:50] LABS: Albumin 2.7 G/DL (3.4-5.0); Bilirubin,Direct 0.13 MG/DL (0.0-0.20); Bilirubin,Total 0.5 MG/DL (0.20-1.00); Calcium 8.7 MG/DL (8.5-10.1); Osmolality,Calculated 281.5 MOS/KG (273-304); Potassium 3.8 MMOL/L (3.5-5.1); Total Protein 5.4 G/DL (6.4-8.2)
[2022-05-15 05:54] LABS: Alanine Aminotransferase 18 U/L (16-61); Albumin 2.6 G/DL (3.4-5.0); Alkaline Phosphatase 49 U/L (45-117); Aspartate Amino Transferase 20 U/L (0-37); Bilirubin,Indirect 0.4 MG/DL (0.0-1.0); Total Protein 5.3 G/DL (6.4-8.2)
[2022-05-15] MEDS ORDERED: FUROSEMIDE 40 MG/4 ML VIAL IV ONE (06:00)
[2022-05-15] MEDS: POTASSIUM CHLORIDE 20 MEQ TABLET PO PRN ×2 (06:14→16:46)
[2022-05-15] MEDS: INSULIN REGULAR 100 UNIT/ML SUBCUT SCH ×4 (10:25→23:37)
[2022-05-15] MEDS: GABAPENTIN 100 MG CAPSULE PO SCH ×3 (10:33→23:38)
[2022-05-15] MEDS: CITALOPRAM 20 MG TABLET PO SCH (10:33)
[2022-05-15] MEDS: LEVOTHYROXINE 75 MCG TABLET PO SCH (10:33)
[2022-05-15] MEDS: ASCORBIC ACID 500 MG TABLET PO SCH ×2 (10:33→23:37)
[2022-05-15] MEDS: ASPIRIN EC 81 MG TABLET PO SCH (10:33)
[2022-05-15] MEDS: DOCUSATE SODIUM 100 MG CAPSULE PO SCH (10:33)
[2022-05-15] MEDS: OXYBUTYNIN 5 MG TABLET PO SCH (10:34)
[2022-05-15] MEDS: METOPROLOL TARTRATE 25 MG TABLET PO SCH ×2 (10:34→23:37)
[2022-05-15] MEDS: PANTOPRAZOLE 40 MG TABLET PO SCH (10:34)
[2022-05-15] MEDS: FERROUS SULFATE 325 MG TABLET PO SCH (10:34)
[2022-05-15] MEDS: CHLORHEXIDINE 0.12% ORAL RINSE 60 ML BOTTLE SWISH/SPIT SCH ×2 (10:35→23:36)
[2022-05-15] MEDS: ROSUVASTATIN 20 MG TABLET PO SCH (23:37)
[2022-05-16 06:00] LABS: Basophils % 0.4 % (0.0-0.8); Eosinophils # 0.6 10*3/uL (0.0-0.87); Eosinophils % 7.3 % (0.00-10.9); Hematocrit 27.5 VOL% (42.0-52.0); Hemoglobin 9.2 GM/DL (14.0-18.0); Immature Granulocytes % 0.8 %; Immature Granulocytes Absolute 0.07 #; Lymphocytes # 1.6 10*3/uL (1.4-4.0); Mean Corpuscular HGB Conc 33.5 GM/DL (32-36); Mean Corpuscular Volume 92.6 FL (87-102); Mean Platelet Volume 9.1 FL (9.6-12.0); Monocytes # 0.8 10*3/uL (0.11-0.8); Monocytes % 9.1 % (1.7-12.7); Neutrophils % 63.4 % (38.7-73.9); Platelet Count 162 T/CUMM (130-400); Red Blood Count 2.97 MC/CUMM (3.8-5.5); Red Cell Distribution Width 13.6 % (9.3-17.3); White Blood Count 8.4 T/CUMM (4-12)
[2022-05-16 06:22] LABS: Alanine Aminotransferase 18 U/L (16-61); Albumin 2.7 G/DL (3.4-5.0); Alkaline Phosphatase 54 U/L (45-117); Aspartate Amino Transferase 21 U/L (0-37); Bilirubin,Indirect 0.3 MG/DL (0.0-1.0); Blood Urea Nitrogen 18 MG/DL (7-18); Calcium 8.8 MG/DL (8.5-10.1); Carbon Dioxide 27 MMOL/L (21-32); Chloride 106 MMOL/L (98-107); Glucose 110 MG/DL (74-106); Osmolality,Calculated 279.5 MOS/KG (273-304); Potassium 3.5 MMOL/L (3.5-5.1); Sodium 139 MMOL/L (136-145); Total Protein 5.7 G/DL (6.4-8.2)
[2022-05-16] MEDS: INSULIN REGULAR 100 UNIT/ML SUBCUT SCH ×4 (08:04→22:45)
[2022-05-16] MEDS ORDERED: POLYETHYLENE GLYCOL POWDER 17 GM PACK PO SCH (09:00)
[2022-05-16] MEDS: PANTOPRAZOLE 40 MG TABLET PO SCH (09:43)
[2022-05-16] MEDS: ASCORBIC ACID 500 MG TABLET PO SCH ×2 (09:43→22:44)
[2022-05-16] MEDS: FERROUS SULFATE 325 MG TABLET PO SCH (09:43)
[2022-05-16] MEDS: DOCUSATE SODIUM 100 MG CAPSULE PO SCH (09:43)
[2022-05-16] MEDS: OXYBUTYNIN 5 MG TABLET PO SCH (09:43)
[2022-05-16] MEDS: GABAPENTIN 100 MG CAPSULE PO SCH ×3 (09:43→22:44)
[2022-05-16] MEDS: LEVOTHYROXINE 75 MCG TABLET PO SCH (09:44)
[2022-05-16] MEDS: METOPROLOL TARTRATE 25 MG TABLET PO SCH ×2 (09:44→22:45)
[2022-05-16] MEDS: ASPIRIN EC 81 MG TABLET PO SCH (09:44)
[2022-05-16] MEDS: CITALOPRAM 20 MG TABLET PO SCH (09:44)
[2022-05-16] MEDS: CHLORHEXIDINE 0.12% ORAL RINSE 60 ML BOTTLE SWISH/SPIT SCH ×2 (09:47→22:46)
[2022-05-16] MEDS ORDERED: POTASSIUM CHLORIDE 20 MEQ TABLET PO ONE (10:45)
[2022-05-16] MEDS: oxyCODONE/ACETAMINOPHEN 5-325 MG TABLET PO PRN (14:18)
[2022-05-16] MEDS: buPROPion 75 MG TABLET PO SCH (22:44)
[2022-05-16] MEDS: ROSUVASTATIN 20 MG TABLET PO SCH (22:45)
[2022-05-17 05:34] LABS: Basophils % 0.3 % (0.0-0.8); Eosinophils # 0.6 10*3/uL (0.0-0.87); Eosinophils % 6.6 % (0.00-10.9); Hematocrit 27.4 VOL% (42.0-52.0); Hemoglobin 9.1 GM/DL (14.0-18.0); Immature Granulocytes % 1.3 %; Immature Granulocytes Absolute 0.11 #; Lymphocytes # 1.3 10*3/uL (1.4-4.0); Lymphocytes % 15.2 % (21.2-54.2); Mean Corpuscular HGB Conc 33.2 GM/DL (32-36); Mean Corpuscular Volume 92.9 FL (87-102); Mean Platelet Volume 9.3 FL (9.6-12.0); Monocytes # 0.8 10*3/uL (0.11-0.8); Monocytes % 8.8 % (1.7-12.7); Neutrophils % 67.8 % (38.7-73.9); Platelet Count 175 T/CUMM (130-400); Red Blood Count 2.95 MC/CUMM (3.8-5.5); Red Cell Distribution Width 13.6 % (9.3-17.3); White Blood Count 8.6 T/CUMM (4-12)
[2022-05-17 05:48] LABS: Calcium 8.5 MG/DL (8.5-10.1); Osmolality,Calculated 287.3 MOS/KG (273-304); Potassium 3.5 MMOL/L (3.5-5.1)
[2022-05-17] MEDS: METOPROLOL TARTRATE 25 MG TABLET PO SCH ×2 (10:23→21:00)
[2022-05-17] MEDS: ASCORBIC ACID 500 MG TABLET PO SCH ×2 (10:24→21:00)
[2022-05-17] MEDS: CHLORHEXIDINE 0.12% ORAL RINSE 60 ML BOTTLE SWISH/SPIT SCH ×2 (10:25→20:58)
[2022-05-17] MEDS: GABAPENTIN 100 MG CAPSULE PO SCH ×3 (10:25→20:50)
[2022-05-17] MEDS: FERROUS SULFATE 325 MG TABLET PO SCH (10:25)
[2022-05-17] MEDS: DOCUSATE SODIUM 100 MG CAPSULE PO SCH (10:26)
[2022-05-17] MEDS: PANTOPRAZOLE 40 MG TABLET PO SCH (10:26)
[2022-05-17] MEDS: buPROPion 75 MG TABLET PO SCH ×2 (10:26→20:50)
[2022-05-17] MEDS: ASPIRIN EC 81 MG TABLET PO SCH (10:26)
[2022-05-17] MEDS: LEVOTHYROXINE 75 MCG TABLET PO SCH (10:27)
[2022-05-17] MEDS: CITALOPRAM 20 MG TABLET PO SCH (10:27)
[2022-05-17] MEDS: OXYBUTYNIN 5 MG TABLET PO SCH (10:28)
[2022-05-17] MEDS: oxyCODONE/ACETAMINOPHEN 5-325 MG TABLET PO PRN (11:43)
[2022-05-17] MEDS: INSULIN REGULAR 100 UNIT/ML SUBCUT SCH ×3 (11:50→20:50)
[2022-05-17] MEDS: ROSUVASTATIN 20 MG TABLET PO SCH (20:58)
[2022-05-18 05:13] LABS: Basophils % 0.4 % (0.0-0.8); Eosinophils # 0.8 10*3/uL (0.0-0.87); Eosinophils % 9.6 % (0.00-10.9); Hematocrit 27.6 VOL% (42.0-52.0); Hemoglobin 9.1 GM/DL (14.0-18.0); Immature Granulocytes % 2.2 %; Immature Granulocytes Absolute 0.18 #; Lymphocytes # 1.3 10*3/uL (1.4-4.0); Lymphocytes % 15.6 % (21.2-54.2); Mean Corpuscular Volume 93.6 FL (87-102); Mean Platelet Volume 9.5 FL (9.6-12.0); Monocytes # 0.7 10*3/uL (0.11-0.8); Monocytes % 8.2 % (1.7-12.7); Platelet Count 209 T/CUMM (130-400); Red Blood Count 2.95 MC/CUMM (3.8-5.5); Red Cell Distribution Width 13.8 % (9.3-17.3)
[2022-05-18 05:43] LABS: Alanine Aminotransferase 25 U/L (16-61); Albumin 2.5 G/DL (3.4-5.0); Alkaline Phosphatase 71 U/L (45-117); Aspartate Amino Transferase 23 U/L (0-37); Bilirubin,Direct < 0.100 MG/DL (0.0-0.20); Bilirubin,Indirect 0.3 MG/DL (0.0-1.0); Bilirubin,Total < 0.39 MG/DL (0.20-1.00); Blood Urea Nitrogen 16 MG/DL (7-18); Calcium 8.4 MG/DL (8.5-10.1); Carbon Dioxide 26 MMOL/L (21-32); Chloride 111 MMOL/L (98-107); Glucose 197 MG/DL (74-106); Osmolality,Calculated 288.1 MOS/KG (273-304); Potassium 3.3 MMOL/L (3.5-5.1); Sodium 142 MMOL/L (136-145); Total Protein 5.7 G/DL (6.4-8.2)
[2022-05-18] MEDS: INSULIN REGULAR 100 UNIT/ML SUBCUT SCH ×4 (08:42→20:58)
[2022-05-18] MEDS: POTASSIUM CHLORIDE 20 MEQ TABLET PO PRN ×3 (09:40→20:59)
[2022-05-18] MEDS: GABAPENTIN 100 MG CAPSULE PO SCH ×3 (09:41→20:59)
[2022-05-18] MEDS: CITALOPRAM 20 MG TABLET PO SCH (09:41)
[2022-05-18] MEDS: ASCORBIC ACID 500 MG TABLET PO SCH ×2 (09:41→20:59)
[2022-05-18] MEDS: FERROUS SULFATE 325 MG TABLET PO SCH (09:41)
[2022-05-18] MEDS: DOCUSATE SODIUM 100 MG CAPSULE PO SCH (09:42)
[2022-05-18] MEDS: METOPROLOL TARTRATE 25 MG TABLET PO SCH ×2 (09:42→20:59)
[2022-05-18] MEDS: PANTOPRAZOLE 40 MG TABLET PO SCH (09:42)
[2022-05-18] MEDS: ASPIRIN EC 81 MG TABLET PO SCH (09:42)
[2022-05-18] MEDS: LEVOTHYROXINE 75 MCG TABLET PO SCH (09:42)
[2022-05-18] MEDS: OXYBUTYNIN 5 MG TABLET PO SCH (09:42)
[2022-05-18] MEDS: buPROPion 75 MG TABLET PO SCH ×2 (09:43→20:59)
[2022-05-18] MEDS: CHLORHEXIDINE 0.12% ORAL RINSE 60 ML BOTTLE SWISH/SPIT SCH ×2 (09:43→21:00)
[2022-05-18] MEDS: ROSUVASTATIN 20 MG TABLET PO SCH (20:59)
[2022-05-19 04:57] LABS: Basophils % 0.4 % (0.0-0.8); Eosinophils # 1.9 10*3/uL (0.0-0.87); Eosinophils % 18.7 % (0.00-10.9); Hematocrit 26.3 VOL% (42.0-52.0); Hemoglobin 8.5 GM/DL (14.0-18.0); Immature Granulocytes % 2.1 %; Immature Granulocytes Absolute 0.22 #; Lymphocytes # 1.6 10*3/uL (1.4-4.0); Lymphocytes % 15.3 % (21.2-54.2); Mean Corpuscular HGB Conc 32.3 GM/DL (32-36); Mean Corpuscular Volume 95.3 FL (87-102); Mean Platelet Volume 9.4 FL (9.6-12.0); Monocytes # 0.7 10*3/uL (0.11-0.8); Monocytes % 6.9 % (1.7-12.7); Neutrophils % 56.6 % (38.7-73.9); Platelet Count 238 T/CUMM (130-400); Red Blood Count 2.76 MC/CUMM (3.8-5.5); White Blood Count 10.4 T/CUMM (4-12)
[2022-05-19 05:28] LABS: Band Neutrophils 1 % (0-10); Eosinophils 18 % (0-10); Lymphocytes 23 % (20-55); Total Cells Counted 100
[2022-05-19 05:29] LABS: Microcytosis Slight; Polychromasia Slight
[2022-05-19 05:30] LABS: Platelet Estimate Normal
[2022-05-19 06:02] LABS: Alanine Aminotransferase 23 U/L (16-61); Albumin 2.5 G/DL (3.4-5.0); Alkaline Phosphatase 59 U/L (45-117); Aspartate Amino Transferase 20 U/L (0-37); Bilirubin,Direct < 0.100 MG/DL (0.0-0.20); Bilirubin,Indirect 0.3 MG/DL (0.0-1.0); Bilirubin,Total < 0.39 MG/DL (0.20-1.00); Blood Urea Nitrogen 13 MG/DL (7-18); Calcium 8.5 MG/DL (8.5-10.1); Carbon Dioxide 25 MMOL/L (21-32); Chloride 110 MMOL/L (98-107); Glucose 137 MG/DL (74-106); Osmolality,Calculated 282.3 MOS/KG (273-304); Potassium 3.7 MMOL/L (3.5-5.1); Sodium 141 MMOL/L (136-145); Total Protein 5.5 G/DL (6.4-8.2)
[2022-05-19] MEDS: INSULIN REGULAR 100 UNIT/ML SUBCUT SCH ×4 (08:25→22:27)
[2022-05-19] MEDS: PANTOPRAZOLE 40 MG TABLET PO SCH (09:42)
[2022-05-19] MEDS: ASPIRIN EC 81 MG TABLET PO SCH (09:42)
[2022-05-19] MEDS: ASCORBIC ACID 500 MG TABLET PO SCH ×2 (09:42→22:27)
[2022-05-19] MEDS: DOCUSATE SODIUM 100 MG CAPSULE PO SCH (09:42)
[2022-05-19] MEDS: CITALOPRAM 20 MG TABLET PO SCH (09:42)
[2022-05-19] MEDS: LEVOTHYROXINE 75 MCG TABLET PO SCH (09:43)
[2022-05-19] MEDS: FERROUS SULFATE 325 MG TABLET PO SCH (09:43)
[2022-05-19] MEDS: GABAPENTIN 100 MG CAPSULE PO SCH ×3 (09:43→22:27)
[2022-05-19] MEDS: OXYBUTYNIN 5 MG TABLET PO SCH (09:43)
[2022-05-19] MEDS: CHLORHEXIDINE 0.12% ORAL RINSE 60 ML BOTTLE SWISH/SPIT SCH ×2 (09:45→22:28)
[2022-05-19] MEDS: buPROPion 75 MG TABLET PO SCH ×2 (15:24→22:27)
[2022-05-19] MEDS: ROSUVASTATIN 20 MG TABLET PO SCH (22:27)
[2022-05-20 05:29] LABS: Basophils % 0.4 % (0.0-0.8); Eosinophils # 0.9 10*3/uL (0.0-0.87); Eosinophils % 12.1 % (0.00-10.9); Hematocrit 26.9 VOL% (42.0-52.0); Hemoglobin 8.7 GM/DL (14.0-18.0); Immature Granulocytes % 2.6 %; Lymphocytes # 1.2 10*3/uL (1.4-4.0); Lymphocytes % 15.6 % (21.2-54.2); Mean Corpuscular HGB Conc 32.3 GM/DL (32-36); Mean Corpuscular Volume 94.7 FL (87-102); Mean Platelet Volume 9.3 FL (9.6-12.0); Monocytes # 0.7 10*3/uL (0.11-0.8); Monocytes % 8.6 % (1.7-12.7); Neutrophils % 60.7 % (38.7-73.9); Platelet Count 257 T/CUMM (130-400); Red Blood Count 2.84 MC/CUMM (3.8-5.5); White Blood Count 7.8 T/CUMM (4-12)
[2022-05-20 05:52] LABS: Calcium 8.9 MG/DL (8.5-10.1); Osmolality,Calculated 281.3 MOS/KG (273-304); Potassium 3.7 MMOL/L (3.5-5.1)
[2022-05-20 05:56] LABS: Band Neutrophils 1 % (0-10); Eosinophils 16 % (0-10); Hypochromia Slight; Lymphocytes 12 % (20-55); Platelet Estimate Adequate; Total Cells Counted 100
[2022-05-20] MEDS: INSULIN REGULAR 100 UNIT/ML SUBCUT SCH ×2 (08:05→12:00)
[2022-05-20] MEDS ORDERED: VALSARTAN 80 MG TABLET PO SCH (09:00)
[2022-05-20] MEDS: CITALOPRAM 20 MG TABLET PO SCH (10:18)
[2022-05-20] MEDS: DOCUSATE SODIUM 100 MG CAPSULE PO SCH (10:18)
[2022-05-20] MEDS: ASPIRIN EC 81 MG TABLET PO SCH (10:18)
[2022-05-20] MEDS: PANTOPRAZOLE 40 MG TABLET PO SCH (10:24)
[2022-05-20] MEDS: FERROUS SULFATE 325 MG TABLET PO SCH (10:24)
[2022-05-20] MEDS: CHLORHEXIDINE 0.12% ORAL RINSE 60 ML BOTTLE SWISH/SPIT SCH (10:24)
[2022-05-20] MEDS: GABAPENTIN 100 MG CAPSULE PO SCH (10:24)
[2022-05-20] MEDS: OXYBUTYNIN 5 MG TABLET PO SCH (10:24)
[2022-05-20] MEDS: ASCORBIC ACID 500 MG TABLET PO SCH (10:25)
[2022-05-20] MEDS: LEVOTHYROXINE 75 MCG TABLET PO SCH (10:25)
[2022-05-20] MEDS: buPROPion 75 MG TABLET PO SCH (10:25)
[2022-05-20 12:12] VITALS: BP 134/77
== END 2022-05-20 15:26 | disposition home health service (06) | DRG 234 ==
LOC: N.CL 07:53 → N.TELEN 15:32 → N.CVR 05-12 10:20 → N.ICU 05-13 09:00 → N.TELES 05-14 17:50
PROVIDERS: ADMIT Internal Medicine Cardiovascular Disease

== ENCOUNTER 2022-06-05 16:20 | Observation (INO) ==
[2022-06-05] MEDS ORDERED: SODIUM CHLORIDE 0.9% 1,000 ML IV STA (17:30)
[2022-06-05 17:42] LABS: Basophils # 0.1 10*3/uL (0.0-0.2); Basophils % 0.8 % (0.0-0.8); Eosinophils # 0.2 10*3/uL (0.0-0.87); Eosinophils % 2.1 % (0.00-10.9); Hematocrit 36.4 VOL% (42.0-52.0); Hemoglobin 11.7 GM/DL (14.0-18.0); Immature Granulocytes % 0.8 %; Immature Granulocytes Absolute 0.06 #; Lymphocytes # 1.2 10*3/uL (1.4-4.0); Lymphocytes % 16.3 % (21.2-54.2); Mean Corpuscular HGB Conc 32.1 GM/DL (32-36); Mean Corpuscular Volume 94.8 FL (87-102); Mean Platelet Volume 9.3 FL (9.6-12.0); Monocytes # 0.6 10*3/uL (0.11-0.8); Monocytes % 7.3 % (1.7-12.7); Neutrophils % 72.7 % (38.7-73.9); Platelet Count 241 T/CUMM (130-400); Red Blood Count 3.84 MC/CUMM (3.8-5.5); Red Cell Distribution Width 13.8 % (9.3-17.3); White Blood Count 7.5 T/CUMM (4-12)
[2022-06-05 17:51] LABS: Alanine Aminotransferase 20 U/L (16-61); Albumin 3.4 G/DL (3.4-5.0); Alkaline Phosphatase 122 U/L (45-117); Aspartate Amino Transferase 15 U/L (0-37); Bilirubin,Total < 0.39 MG/DL (0.20-1.00); Blood Urea Nitrogen 25 MG/DL (7-18); Calcium 9.4 MG/DL (8.5-10.1); Carbon Dioxide 24 MMOL/L (21-32); Chloride 106 MMOL/L (98-107); Glucose 189 MG/DL (74-106); Osmolality,Calculated 287.4 MOS/KG (273-304); Potassium 4.5 MMOL/L (3.5-5.1); Sodium 140 MMOL/L (136-145); Total Protein 6.3 G/DL (6.4-8.2)
[2022-06-05 20:15] LABS: Mucus,Urine Occasional /LPF (Occasional); RBC,Urine <1 /HPF (0-4); Urine Appearance Clear (Clear); Urine Color Yellow (Yellow); Urine pH 5.5 (4.5-8.0)
[2022-06-05 20:16] LABS: Bilirubin,Urine Negative (Negative); Blood, Urine Negative (Negative); Glucose,Urine (UA) Negative (Negative); Ketones,Urine Negative (Negative); Nitrite,Urine Negative (Negative); Protein,Urine Negative (Negative); Urine Urobilinogen 0.2 eU/dL (<2.0)
[2022-06-05] MEDS ORDERED: DEXTROSE 10% 250 ML BAG IV PRN (21:33)
[2022-06-05] MEDS ORDERED: GLUCAGON 1 MG VIAL IM PRN (21:33)
[2022-06-05] MEDS ORDERED: ONDANSETRON 4 MG/2 ML VIAL IV PRN (21:33)
[2022-06-05] MEDS ORDERED: ACETAMINOPHEN 325 MG TABLET PO PRN (21:33)
[2022-06-05] MEDS ORDERED: FLUTICASONE 50 MCG NASAL SPRAY 16 GM BOTTLE BOTH NARES PRN (21:57)
[2022-06-05 23:51] LABS: Barbiturates Screen,Urine Negative (Negative); Benzodiazepines Screen,Urine Negative (Negative); Cannabinoid Screen,Urine Negative (Negative); Opiate Screen,Urine Negative (Negative); Phencyclidine Screen,Urine Negative (Negative)
[2022-06-06] MEDS: LACTATED RINGERS 1,000 ML IV SCH ×2 (00:05→13:46)
[2022-06-06 01:09] LABS: Arterial Base Excess iSTAT 1 MMOL/L (-2.5-2.5); Arterial Bicarbonate iSTAT 25.9 MMOL/L (20-26); Arterial O2 Saturation iSTAT 99 % (95-100); Arterial PCO2 iSTAT 43 MM HG (35-48); Arterial PO2 iSTAT 140 MM HG (80-95); Arterial Total CO2 iSTAT 27 MMO/L (23-27); Arterial pH iSTAT 7.389 (7.35-7.45)
[2022-06-06] MEDS: LEVOTHYROXINE 75 MCG TABLET PO SCH (06:58)
[2022-06-06 07:05] LABS: Basophils % 0.7 % (0.0-0.8); Eosinophils # 0.3 10*3/uL (0.0-0.87); Eosinophils % 4.3 % (0.00-10.9); Hematocrit 33.6 VOL% (42.0-52.0); Hemoglobin 10.6 GM/DL (14.0-18.0); Immature Granulocytes % 0.9 %; Immature Granulocytes Absolute 0.05 #; Lymphocytes # 1.5 10*3/uL (1.4-4.0); Lymphocytes % 25.3 % (21.2-54.2); Mean Corpuscular HGB Conc 31.5 GM/DL (32-36); Mean Corpuscular Volume 95.2 FL (87-102); Mean Platelet Volume 9.1 FL (9.6-12.0); Monocytes # 0.5 10*3/uL (0.11-0.8); Monocytes % 8.7 % (1.7-12.7); Neutrophils % 60.1 % (38.7-73.9); Red Blood Count 3.53 MC/CUMM (3.8-5.5); Red Cell Distribution Width 13.9 % (9.3-17.3); White Blood Count 5.8 T/CUMM (4-12)
[2022-06-06 07:08] LABS: Calcium 8.6 MG/DL (8.5-10.1); Platelet Count 182 T/CUMM (130-400); Potassium 4.3 MMOL/L (3.5-5.1)
[2022-06-06 08:07] LABS: PT Patient Result 10.8 SECS (10.1-12.1)
[2022-06-06 08:28] LABS: Folate > 24.00 NG/ML (5.38-24.0); Vitamin B12 > 2000 PG/ML (211-911)
[2022-06-06] MEDS ORDERED: CHOLECALCIFEROL 5,000 UNIT TABLET PO SCH (09:00)
[2022-06-06 10:36] LABS: Lymphocytes,CSF 100 %
[2022-06-06] MEDS: INSULIN LISPRO 100 UNIT/ML SUBCUT SCH ×4 (10:36→21:52)
[2022-06-06 10:37] LABS: Red Blood Cell,CSF 2 C/CUMM; White Blood Cell,CSF 2 C/CUMM
[2022-06-06 10:40] LABS: Appearance,CSF Clear
[2022-06-06 10:45] LABS: Glucose,CSF 64 MG/DL (40-70)
[2022-06-06] MEDS: MULTIVITAMIN (OCUVITE) TABLET PO SCH (12:22)
[2022-06-06] MEDS: PANTOPRAZOLE 40 MG TABLET PO SCH (12:22)
[2022-06-06] MEDS: MEMANTINE 10 MG TABLET PO SCH ×2 (12:23→20:58)
[2022-06-06] MEDS: ASPIRIN EC 81 MG TABLET PO SCH (12:23)
[2022-06-06] MEDS: FERROUS SULFATE 325 MG TABLET PO SCH ×2 (12:23→20:56)
[2022-06-06] MEDS: OXYBUTYNIN 5 MG TABLET PO SCH (12:23)
[2022-06-06] MEDS: ASCORBIC ACID 500 MG TABLET PO SCH ×2 (12:23→20:57)
[2022-06-06] MEDS: FAMOTIDINE 20 MG TABLET PO SCH (12:24)
[2022-06-06] MEDS ORDERED: SODIUM CHLORIDE 0.9% 1,000 ML IV SCH ×2 (12:30→14:30)
[2022-06-06] MEDS: POTASSIUM CHLORIDE 20 MEQ TABLET PO SCH (12:42)
[2022-06-06] MEDS: CHOLECALCIFEROL 5,000 UNIT TABLET PO SCH (12:42)
[2022-06-06] MEDS: MAGNESIUM OXIDE 400 MG TABLET PO SCH ×2 (12:43→20:56)
[2022-06-06] MEDS: CYANOCOBALAMIN 500 MCG TABLET PO SCH (13:49)
[2022-06-06] MEDS ORDERED: ENOXAPARIN 40 MG/0.4 ML SYRINGE SUBCUT SCH (21:00)
[2022-06-06] MEDS ORDERED: ROSUVASTATIN 20 MG TABLET PO SCH (21:00)
[2022-06-07] MEDS: LEVOTHYROXINE 75 MCG TABLET PO SCH (05:22)
[2022-06-07 06:04] LABS: Basophils % 0.6 % (0.0-0.8); Eosinophils # 0.3 10*3/uL (0.0-0.87); Eosinophils % 5.7 % (0.00-10.9); Hematocrit 31.7 VOL% (42.0-52.0); Hemoglobin 10.1 GM/DL (14.0-18.0); Immature Granulocytes % 0.6 %; Immature Granulocytes Absolute 0.03 #; Lymphocytes # 1.1 10*3/uL (1.4-4.0); Mean Corpuscular HGB Conc 31.9 GM/DL (32-36); Mean Corpuscular Volume 96.1 FL (87-102); Mean Platelet Volume 9.6 FL (9.6-12.0); Monocytes # 0.5 10*3/uL (0.11-0.8); Monocytes % 9.6 % (1.7-12.7); Neutrophils % 61.5 % (38.7-73.9); Platelet Count 152 T/CUMM (130-400); Red Cell Distribution Width 13.4 % (9.3-17.3); White Blood Count 5.1 T/CUMM (4-12)
[2022-06-07 06:21] LABS: Calcium 8.5 MG/DL (8.5-10.1); Osmolality,Calculated 284.1 MOS/KG (273-304); Potassium 3.9 MMOL/L (3.5-5.1)
[2022-06-07] MEDS: FERROUS SULFATE 325 MG TABLET PO SCH (10:42)
[2022-06-07] MEDS: MULTIVITAMIN (OCUVITE) TABLET PO SCH (10:42)
[2022-06-07] MEDS: FAMOTIDINE 20 MG TABLET PO SCH (10:42)
[2022-06-07] MEDS: MEMANTINE 10 MG TABLET PO SCH (10:42)
[2022-06-07] MEDS: OXYBUTYNIN 5 MG TABLET PO SCH (10:43)
[2022-06-07] MEDS: ASCORBIC ACID 500 MG TABLET PO SCH (10:43)
[2022-06-07] MEDS: PANTOPRAZOLE 40 MG TABLET PO SCH (10:43)
[2022-06-07] MEDS: MAGNESIUM OXIDE 400 MG TABLET PO SCH (10:43)
[2022-06-07] MEDS: CHOLECALCIFEROL 5,000 UNIT TABLET PO SCH (10:43)
[2022-06-07] MEDS: ASPIRIN EC 81 MG TABLET PO SCH (10:43)
[2022-06-07] MEDS: POTASSIUM CHLORIDE 20 MEQ TABLET PO SCH (10:43)
[2022-06-07] MEDS: INSULIN LISPRO 100 UNIT/ML SUBCUT SCH ×2 (10:57→12:03)
[2022-06-07] MEDS: CYANOCOBALAMIN 500 MCG TABLET PO SCH (11:02)
[2022-06-07 14:07] VITALS: BP 155/74
[2022-06-07 16:51] LABS: CSF Crypto neoforman/gatti PCR Negative (Negative); CSF Cytomegalovirus PCR Negative (Negative); CSF Enterovirus PCR Negative (Negative); CSF Escherichia coli K1 PCR Negative (Negative); CSF Haemophilus influenzae PCR Negative (Negative); CSF Herpes Simplex Virus 1 PCR Negative (Negative); CSF Herpes Simplex Virus 2 PCR Negative (Negative); CSF Human Herpes Virus 6 PCR Negative (Negative); CSF Human Parechovirus PCR Negative (Negative); CSF Listeria monocytogenes PCR Negative (Negative); CSF Neisseria meningitidis PCR Negative (Negative); CSF Streptococcus agalacti PCR Negative (Negative); CSF Streptococcus pneumon PCR Negative (Negative); CSF Varicella Zoster Virus PCR Negative (Negative); Specimen source CEREBROSPINAL FLUID
[2022-06-09 16:12] LABS: West Nile Virus Ab, IgG, CSF Negative (Negative); West Nile Virus Ab, IgM, CSF Negative (Negative)
== END 2022-06-07 12:45 | disposition home or self-care (01) ==
LOC: EDBD → EDUNIT# → N.EDINP 16:20 → N.ED 16:20 → SUATTDRO 21:33 → N.EDINP 23:22 → N.TELES 23:27
PROVIDERS: ADMIT Emergency Medicine; ATTEND Family Medicine